=== PATIENT | male | born 1935 | race African-American/Black ===

== ENCOUNTER 2018-06-21 18:48 | Inpatient (IN) ==
[2018-06-21 20:10] LABS: Basophils # 0.1 10*3/uL (0.0-0.2); Basophils % 0.4 % (0.0-0.8); Eosinophils % 0.1 % (0.00-10.9); Hemoglobin 8.6 GM/DL (14.0-18.0); Immature Granulocytes % 0.5 %; Immature Granulocytes Absolute 0.07 #; Lymphocytes # 1.7 10*3/uL (1.4-4.0); Lymphocytes % 11.4 % (21.2-54.2); Mean Corpuscular HGB Conc 28.7 GM/DL (32-36); Mean Corpuscular Hemoglobin 19 PG (27-34); Mean Corpuscular Volume 67.1 FL (87-102); Mean Platelet Volume 10.2 FL (9.6-12.0); Monocytes # 1.3 10*3/uL (0.11-0.8); Monocytes % 8.6 % (1.7-12.7); Neutrophils # 11.6 10*3/uL (1.4-7.4); Platelet Count 515 T/CUMM (130-400); Red Blood Count 4.47 MC/CUMM (3.8-5.5); Red Cell Distribution Width 20.5 % (9.3-17.3); White Blood Count 14.7 T/CUMM (4-12)
[2018-06-21 20:24] LABS: Albumin 2.1 G/DL (3.4-5.0); Bilirubin,Total 0.8 MG/DL (0.2-1.0); Calcium 8.8 MG/DL (8.5-10.1); Potassium 3.5 MMOL/L (3.5-5.1); Total Protein 8.4 G/DL (6.4-8.3)
[2018-06-21 20:41] LABS: Elliptocytes Few; Hypochromasia 1+; Polychromasia Few; Target Cells Few; Tear Drop Cells 1+
[2018-06-21 20:42] LABS: Microcytosis 1+; Platelet Estimate Increased
[2018-06-21 20:56] LABS: Apearance,Urine Slightly Hazy (Clear); Bilirubin,Urine Negative (Negative); Blood, Urine Small mg/dL (Negative); Glucose,Urine (UA) Negative (Negative); Hyaline Casts,Urine 1 /LPF (0-3); Ketones,Urine Negative (Negative); Mucus,Urine Occasional /LPF (Occasional); Nitrite,Urine Negative (Negative); Protein,Urine 30 MG/DL; RBC,Urine 3 /HPF (0-4); Squamous Epithelial Cell,Urine Occasional /HPF (0-10); Urine Color Yellow (Yellow); Urine Specific Gravity 1.014 (1.001-1.035); WBC,Urine 13 /HPF (0-6)
[2018-06-21] MEDS ORDERED: PIPERACILLIN/TAZOBACTAM 3,375 MG in SODIUM CHLORIDE 0.9% 100 ML IV ONE (21:54)
[2018-06-21] MEDS ORDERED: PROMETHAZINE 25 MG/1 ML VIAL IM PRN (23:35)
[2018-06-21] MEDS ORDERED: diphenhydrAMINE CAP 25 MG CAPSULE PO PRN (23:35)
[2018-06-21] MEDS ORDERED: MORPHINE 4 MG/1 ML VIAL IV PRN (23:35)
[2018-06-21] MEDS ORDERED: ONDANSETRON 4 MG/2 ML VIAL IV PRN (23:35)
[2018-06-21] MEDS ORDERED: ACETAMINOPHEN 325 MG TABLET PO PRN (23:35)
[2018-06-21] MEDS ORDERED: SODIUM CHLORIDE 0.9% 1,000 ML IV SCH (23:45)
[2018-06-22] MEDS: SODIUM CHLORIDE 0.9% 1,000 ML IV SCH ×2 (01:30→15:13)
[2018-06-22] MEDS: CLINDAMYCIN INJ 300 MG in PREMIX 1 EACH IV SCH ×2 (02:30→09:11)
[2018-06-22 05:59] LABS: Basophils # 0.1 10*3/uL (0.0-0.2); Basophils % 0.6 % (0.0-0.8); Eosinophils # 0.1 10*3/uL (0.0-0.87); Eosinophils % 0.6 % (0.00-10.9); Hematocrit 26.4 VOL% (42.0-52.0); Immature Granulocytes % 0.5 %; Immature Granulocytes Absolute 0.06 #; Lymphocytes # 1.7 10*3/uL (1.4-4.0); Lymphocytes % 13.8 % (21.2-54.2); Mean Corpuscular HGB Conc 28.4 GM/DL (32-36); Mean Corpuscular Hemoglobin 19 PG (27-34); Mean Corpuscular Volume 66.7 FL (87-102); Mean Platelet Volume 10.6 FL (9.6-12.0); Monocytes # 1.2 10*3/uL (0.11-0.8); Monocytes % 9.6 % (1.7-12.7); NRBC # 0.02 10*3/uL; Neutrophils % 74.9 % (38.7-73.9); Platelet Count 464 T/CUMM (130-400); Red Blood Count 3.96 MC/CUMM (3.8-5.5); Red Cell Distribution Width 19.9 % (9.3-17.3)
[2018-06-22 06:00] LABS: Hemoglobin 7.5 GM/DL (14.0-18.0)
[2018-06-22] MEDS: PIPERACILLIN/TAZOBACTAM 3,375 MG in SODIUM CHLORIDE 0.9% 100 ML IV SCH ×3 (06:07→21:32)
[2018-06-22 06:14] LABS: Albumin 1.8 G/DL (3.4-5.0); Bilirubin,Total 1.1 MG/DL (0.2-1.0); Calcium 8.4 MG/DL (8.5-10.1); Osmolality,Calculated 286.4 MOS/KG (273-304); Potassium 3.4 MMOL/L (3.5-5.1); Total Protein 7.2 G/DL (6.4-8.3)
[2018-06-22 06:16] LABS: Hypochromasia 1+; Microcytosis 1+; Platelet Estimate Adequate
[2018-06-22] MEDS ORDERED: POTASSIUM CHLORIDE 20 MEQ TABLET PO ONE (13:55)
[2018-06-22] MEDS: CELECOXIB 100 MG CAPSULE PO SCH ×2 (15:07→21:28)
[2018-06-22] MEDS: DILTIAZEM CD 180 MG CAPSULE PO SCH (15:07)
[2018-06-22] MEDS: amLODIPine 10 MG TABLET PO SCH (15:08)
[2018-06-22] MEDS: METOPROLOL TARTRATE 25 MG TABLET PO SCH ×2 (15:08→21:28)
[2018-06-23] MEDS: PIPERACILLIN/TAZOBACTAM 3,375 MG in SODIUM CHLORIDE 0.9% 100 ML IV SCH (06:20)
[2018-06-23 06:35] LABS: Basophils # 0.1 10*3/uL (0.0-0.2); Basophils % 0.7 % (0.0-0.8); Eosinophils # 0.1 10*3/uL (0.0-0.87); Eosinophils % 1.4 % (0.00-10.9); Immature Granulocytes % 0.3 %; Immature Granulocytes Absolute 0.02 #; Lymphocytes # 1.5 10*3/uL (1.4-4.0); Lymphocytes % 20.4 % (21.2-54.2); Mean Corpuscular HGB Conc 27.8 GM/DL (32-36); Mean Corpuscular Hemoglobin 19 PG (27-34); Mean Corpuscular Volume 67.2 FL (87-102); Mean Platelet Volume 10.2 FL (9.6-12.0); Monocytes # 0.7 10*3/uL (0.11-0.8); Monocytes % 9.8 % (1.7-12.7); Neutrophils # 4.8 10*3/uL (1.4-7.4); Neutrophils % 67.4 % (38.7-73.9); Platelet Count 441 T/CUMM (130-400); Red Blood Count 4.06 MC/CUMM (3.8-5.5); Red Cell Distribution Width 20.7 % (9.3-17.3); White Blood Count 7.1 T/CUMM (4-12)
[2018-06-23 06:48] LABS: Hematocrit 27.1 VOL% (42.0-52.0); Hemoglobin 7.7 GM/DL (14.0-18.0)
[2018-06-23 07:01] LABS: Calcium 7.8 MG/DL (8.5-10.1); Hypochromasia 1+; Osmolality,Calculated 287.1 MOS/KG (273-304); Ovalocytes Slight; Platelet Estimate Adequate; Potassium 3.7 MMOL/L (3.5-5.1)
[2018-06-23 07:02] LABS: Microcytosis 1+
[2018-06-23 07:05] LABS: Risk Ratio 6.31; VLDL CHOLESTEROL 25.8 MG/DL
[2018-06-23] MEDS: METOPROLOL TARTRATE 25 MG TABLET PO SCH ×2 (09:33→15:50)
[2018-06-23] MEDS: DILTIAZEM CD 180 MG CAPSULE PO SCH (09:33)
[2018-06-23] MEDS: AMOXICILLIN/CLAV 875 MG TABLET PO SCH ×2 (09:33→20:31)
[2018-06-23] MEDS: amLODIPine 10 MG TABLET PO SCH (09:33)
[2018-06-23] MEDS: CELECOXIB 100 MG CAPSULE PO SCH ×2 (09:34→20:31)
[2018-06-23] MEDS ORDERED: GLUCAGON 1 MG VIAL IM PRN (09:46)
[2018-06-23] MEDS ORDERED: DEXTROSE 50% 25 GM/50 ML VIAL IV PRN (09:46)
[2018-06-23] MEDS: INSULIN REGULAR 100 UNIT/ML SUBCUT SCH ×2 (12:13→16:19)
[2018-06-23] MEDS: LACTOBACILLUS ACIDOPHILUS/BULGARICUS CHEW TABLET PO SCH ×2 (14:00→20:31)
[2018-06-23] MEDS: SODIUM CHLORIDE 0.9% 1,000 ML IV SCH (16:22)
[2018-06-24] MEDS: METOPROLOL TARTRATE 25 MG TABLET PO SCH ×2 (00:21→08:53)
[2018-06-24] MEDS: INSULIN REGULAR 100 UNIT/ML SUBCUT SCH ×3 (01:12→11:50)
[2018-06-24 05:44] LABS: Calcium 7.9 MG/DL (8.5-10.1); Potassium 3.5 MMOL/L (3.5-5.1)
[2018-06-24 05:55] LABS: Basophils # 0.1 10*3/uL (0.0-0.2); Basophils % 0.9 % (0.0-0.8); Eosinophils # 0.1 10*3/uL (0.0-0.87); Eosinophils % 2.3 % (0.00-10.9); Hematocrit 30.5 VOL% (42.0-52.0); Immature Granulocytes % 0.4 %; Immature Granulocytes Absolute 0.02 #; Lymphocytes # 1.6 10*3/uL (1.4-4.0); Lymphocytes % 28.2 % (21.2-54.2); Mean Corpuscular HGB Conc 28.2 GM/DL (32-36); Mean Corpuscular Hemoglobin 19 PG (27-34); Mean Corpuscular Volume 67.8 FL (87-102); Mean Platelet Volume 10.4 FL (9.6-12.0); Monocytes # 0.7 10*3/uL (0.11-0.8); Monocytes % 11.4 % (1.7-12.7); Neutrophils # 3.3 10*3/uL (1.4-7.4); Neutrophils % 56.8 % (38.7-73.9); Platelet Count 462 T/CUMM (130-400); White Blood Count 5.7 T/CUMM (4-12)
[2018-06-24 05:57] LABS: Hemoglobin 8.6 GM/DL (14.0-18.0)
[2018-06-24 06:08] LABS: Hypochromasia 1+; Platelet Estimate Adequate
[2018-06-24 06:09] LABS: Microcytosis Slight; Ovalocytes Slight
[2018-06-24] MEDS: SODIUM CHLORIDE 0.9% 1,000 ML IV SCH ×2 (08:23→08:24)
[2018-06-24] MEDS: AMOXICILLIN/CLAV 875 MG TABLET PO SCH (08:53)
[2018-06-24] MEDS: DILTIAZEM CD 180 MG CAPSULE PO SCH (08:53)
[2018-06-24] MEDS: CELECOXIB 100 MG CAPSULE PO SCH (08:54)
[2018-06-24] MEDS: amLODIPine 10 MG TABLET PO SCH (08:54)
[2018-06-24] MEDS: LACTOBACILLUS ACIDOPHILUS/BULGARICUS CHEW TABLET PO SCH (10:20)
[2018-06-24 13:23] VITALS: BP 109/62
== END 2018-06-24 12:35 | disposition home or self-care (01) | DRG 372 ==
LOC: N.ED 18:48 → N.EDINP 23:35 → N.5E 06-22 00:55
PROVIDERS: ADMIT Internal Medicine; ATTEND Internal Medicine

== ENCOUNTER 2018-08-05 05:55 | Inpatient (IN) ==
[2018-08-02 14:09] LABS: Calcium 8.6 MG/DL (8.5-10.1)
[2018-08-02 14:10] LABS: Potassium 4.2 MMOL/L (3.5-5.1)
[2018-08-02 14:16] LABS: Basophils # 0.1 10*3/uL (0.0-0.2); Basophils % 1.3 % (0.0-0.8); Eosinophils # 0.1 10*3/uL (0.0-0.87); Eosinophils % 2.3 % (0.00-10.9); Hematocrit 37.4 VOL% (42.0-52.0); Hemoglobin 10.7 GM/DL (14.0-18.0); Immature Granulocytes % 0.3 %; Immature Granulocytes Absolute 0.02 #; Lymphocytes # 2.1 10*3/uL (1.4-4.0); Lymphocytes % 34.6 % (21.2-54.2); Mean Corpuscular HGB Conc 28.6 GM/DL (32-36); Mean Corpuscular Hemoglobin 22 PG (27-34); Mean Corpuscular Volume 75.3 FL (87-102); Mean Platelet Volume 10.3 FL (9.6-12.0); Monocytes # 0.4 10*3/uL (0.11-0.8); Monocytes % 6.5 % (1.7-12.7); Neutrophils # 3.4 10*3/uL (1.4-7.4); Platelet Count 302 T/CUMM (130-400); Red Blood Count 4.97 MC/CUMM (3.8-5.5); White Blood Count 6.2 T/CUMM (4-12)
[2018-08-05] MEDS ORDERED: ERTAPENEM 1,000 MG in SODIUM CHLORIDE 0.9% 100 ML IV ONE (06:00)
[2018-08-05] MEDS ORDERED: ALVIMOPAN 12 MG CAPSULE PO ONE (06:00)
[2018-08-05] MEDS ORDERED: ERTAPENEM 1,000 MG VIAL ONE (06:55)
[2018-08-05] MEDS ORDERED: ALVIMOPAN 12 MG CAPSULE ONE (06:55)
[2018-08-05] MEDS ORDERED: LACTATED RINGERS 1,000 ML IV SCH (07:00)
[2018-08-05] MEDS ORDERED: INDOCYANINE GREEN 25 MG VIAL IV ONE (08:33)
[2018-08-05] MEDS ORDERED: TISSUE ADHESIVE 1 EACH APPLICATOR TOP ONE (09:32)
[2018-08-05] MEDS ORDERED: DESFLURANE 1 UNIT/15 MINUTE INH ONE (10:16)
[2018-08-05] MEDS ORDERED: PROPOFOL 200 MG/20 ML VIAL IV ONE (10:16)
[2018-08-05] MEDS ORDERED: ePHEDrine 50 MG/ML AMP ONE (10:19)
[2018-08-05] MEDS ORDERED: GLYCOPYRROLATE 0.4 MG/2 ML VIAL ONE (10:19)
[2018-08-05] MEDS ORDERED: ETOMIDATE 40 MG/20 ML VIAL IV ONE (10:19)
[2018-08-05] MEDS ORDERED: ACETAMINOPHEN 1,000 MG/100 ML VIAL IV ONE (10:19)
[2018-08-05] MEDS ORDERED: ONDANSETRON 4 MG/2 ML VIAL ONE (10:19)
[2018-08-05] MEDS ORDERED: ROCURONIUM 100 MG/10 ML VIAL IV ONE (10:19)
[2018-08-05] MEDS ORDERED: methylPREDNISolone SOD SUC 125 MG/2 ML VIAL ONE (10:19)
[2018-08-05] MEDS ORDERED: LACTATED RINGERS 1,000 ML IV ONE (10:20)
[2018-08-05] MEDS ORDERED: NEOSTIGMINE 10 MG/10 ML VIAL ONE (10:20)
[2018-08-05] MEDS ORDERED: HYDROmorphone 2 MG/1 ML VIAL IV PRN (11:12)
[2018-08-05] MEDS ORDERED: DEXTROSE 50% 25 GM/50 ML SYRINGE IV PRN (11:12)
[2018-08-05] MEDS ORDERED: GLUCAGON 1 MG VIAL IM PRN (11:12)
[2018-08-05 11:55] LABS: Calcium 8.4 MG/DL (8.5-10.1); Osmolality,Calculated 284.4 MOS/KG (273-304); Potassium 3.7 MMOL/L (3.5-5.1)
[2018-08-05 12:11] LABS: Basophils # 0.1 10*3/uL (0.0-0.2); Basophils % 0.8 % (0.0-0.8); Eosinophils % 0.2 % (0.00-10.9); Hematocrit 36.9 VOL% (42.0-52.0); Immature Granulocytes % 0.3 %; Immature Granulocytes Absolute 0.03 #; Lymphocytes # 1.8 10*3/uL (1.4-4.0); Lymphocytes % 17.1 % (21.2-54.2); Mean Corpuscular HGB Conc 28.5 GM/DL (32-36); Mean Corpuscular Hemoglobin 22 PG (27-34); Mean Corpuscular Volume 75.6 FL (87-102); Mean Platelet Volume 10.4 FL (9.6-12.0); Monocytes # 0.3 10*3/uL (0.11-0.8); Monocytes % 3.2 % (1.7-12.7); NRBC # 0.02 10*3/uL; Neutrophils % 78.4 % (38.7-73.9); Platelet Count 266 T/CUMM (130-400); Red Blood Count 4.88 MC/CUMM (3.8-5.5); White Blood Count 10.2 T/CUMM (4-12)
[2018-08-05 12:15] LABS: Hemoglobin 10.5 GM/DL (14.0-18.0)
[2018-08-05] MEDS: INSULIN REGULAR 100 UNIT/ML SUBCUT SCH ×3 (12:18→21:59)
[2018-08-05 12:38] LABS: Hypochromasia 2+; Microcytosis 1+; Ovalocytes Few
[2018-08-05 12:39] LABS: Anisocytosis 1+; Platelet Estimate Normal
[2018-08-05] MEDS: LACTATED RINGERS 1,000 ML IV SCH ×2 (15:44→21:55)
[2018-08-05] MEDS: METOPROLOL TARTRATE 25 MG TABLET PO SCH ×2 (15:55→21:59)
[2018-08-05] MEDS ORDERED: ALVIMOPAN 12 MG CAPSULE PO SCH (21:00)
[2018-08-06] MEDS ORDERED: ENOXAPARIN 40 MG/0.4 ML SYRINGE SUBCUT SCH (04:18)
[2018-08-06 04:56] LABS: Basophils % 0.1 % (0.0-0.8); Hematocrit 35.4 VOL% (42.0-52.0); Immature Granulocytes % 0.6 %; Lymphocytes # 1.4 10*3/uL (1.4-4.0); Lymphocytes % 8.1 % (21.2-54.2); Mean Corpuscular HGB Conc 28.8 GM/DL (32-36); Mean Corpuscular Hemoglobin 21 PG (27-34); Mean Corpuscular Volume 74.4 FL (87-102); Mean Platelet Volume 9.9 FL (9.6-12.0); Monocytes % 6.1 % (1.7-12.7); Neutrophils # 14.4 10*3/uL (1.4-7.4); Neutrophils % 85.1 % (38.7-73.9); Platelet Count 271 T/CUMM (130-400); Red Blood Count 4.76 MC/CUMM (3.8-5.5); Red Cell Distribution Width 24.3 % (9.3-17.3); White Blood Count 16.9 T/CUMM (4-12)
[2018-08-06 05:03] LABS: Hemoglobin 10.2 GM/DL (14.0-18.0)
[2018-08-06] MEDS: LACTATED RINGERS 1,000 ML IV SCH (05:10)
[2018-08-06 05:20] LABS: Calcium 8.8 MG/DL (8.5-10.1); Osmolality,Calculated 282.5 MOS/KG (273-304); Potassium 4.6 MMOL/L (3.5-5.1)
[2018-08-06] MEDS ORDERED: predniSONE 5 MG TABLET PO SCH (09:00)
[2018-08-06] MEDS ORDERED: amLODIPine 10 MG TABLET PO SCH (09:00)
[2018-08-06] MEDS ORDERED: POTASSIUM CHLORIDE 20 MEQ TABLET PO SCH (09:00)
[2018-08-06] MEDS ORDERED: DILTIAZEM CD 180 MG CAPSULE PO SCH (09:00)
[2018-08-06] MEDS: INSULIN REGULAR 100 UNIT/ML SUBCUT SCH (10:18)
[2018-08-06] MEDS: METOPROLOL TARTRATE 25 MG TABLET PO SCH (10:31)
[2018-08-06 10:32] VITALS: BP 167/88
== END 2018-08-06 12:36 | disposition home or self-care (01) | DRG 329 ==
LOC: N.OR 05:55 → N.SDSINP 05:56 → N.3E 10:02
PROVIDERS: ADMIT Surgery; ATTEND Surgery

== ENCOUNTER 2018-08-10 17:15 | Inpatient (IN) ==
[2018-08-10] MEDS ORDERED: SODIUM CHLORIDE 0.9% 500 ML IV STA (17:46)
[2018-08-10] MEDS ORDERED: ONDANSETRON 4 MG/2 ML VIAL IV STA (17:46)
[2018-08-10 18:33] LABS: Apearance,Urine Slightly Hazy (Clear); Bacteria,Urine Occasional /HPF (Few); Bilirubin,Urine Negative (Negative); Blood, Urine Large mg/dL (Negative); Glucose,Urine (UA) Negative (Negative); Hyaline Casts,Urine 1 /LPF (0-3); Ketones,Urine Negative (Negative); Nitrite,Urine Negative (Negative); Protein,Urine Negative; RBC,Urine 67 /HPF (0-4); Squamous Epithelial Cell,Urine Occasional /HPF (0-10); Urine Color Yellow (Yellow); Urine Specific Gravity 1.009 (1.001-1.035); Urine Urobilinogen < 2.0 EU/DL (0.2-1.0); WBC,Urine 9 /HPF (0-6)
[2018-08-10 18:52] LABS: Mean Platelet Volume 10.4 FL (9.6-12.0)
[2018-08-10] MEDS ORDERED: cefTRIAXone 1,000 MG in SODIUM CHLORIDE 0.9% 100 ML IV STA (19:05)
[2018-08-10 19:14] LABS: Basophils % 0.4 % (0.0-0.8); Eosinophils # 0.2 10*3/uL (0.0-0.87); Eosinophils % 2.1 % (0.00-10.9); Hematocrit 33.6 VOL% (42.0-52.0); Immature Granulocytes % 0.7 %; Immature Granulocytes Absolute 0.06 #; Mean Corpuscular HGB Conc 29.8 GM/DL (32-36); Mean Corpuscular Hemoglobin 22 PG (27-34); Mean Corpuscular Volume 72.4 FL (87-102); Monocytes % 12.1 % (1.7-12.7); NRBC # 0.03 10*3/uL; Neutrophils # 5.1 10*3/uL (1.4-7.4); Neutrophils % 60.7 % (38.7-73.9); Platelet Count 254 T/CUMM (130-400); Red Blood Count 4.64 MC/CUMM (3.8-5.5); Red Cell Distribution Width 23.5 % (9.3-17.3); White Blood Count 8.4 T/CUMM (4-12)
[2018-08-10 19:21] LABS: Lactic Acid 0.8 MMOL/L (0.4-2.0)
[2018-08-10 19:22] LABS: Albumin 2.7 G/DL (3.4-5.0); Bilirubin,Total 0.7 MG/DL (0.2-1.0); Calcium 8.7 MG/DL (8.5-10.1); Osmolality,Calculated 303.7 MOS/KG (273-304); Potassium 4.2 MMOL/L (3.5-5.1); Total Protein 7.6 G/DL (6.4-8.3)
[2018-08-10] MEDS ORDERED: NIFEdipine 10 MG CAPSULE PO PRN (21:29)
[2018-08-10] MEDS ORDERED: ACETAMINOPHEN 325 MG TABLET PO PRN (21:29)
[2018-08-10] MEDS ORDERED: ONDANSETRON 4 MG/2 ML VIAL IV PRN (21:29)
[2018-08-10] MEDS: TAMSULOSIN 0.4 MG CAPSULE PO SCH (23:54)
[2018-08-10] MEDS: METOPROLOL TARTRATE 25 MG TABLET PO SCH (23:54)
[2018-08-10] MEDS: CIPROFLOXACIN 500 MG TABLET PO SCH (23:54)
[2018-08-10] MEDS: ENOXAPARIN 30 MG/0.3 ML SYRINGE SUBCUT SCH (23:54)
[2018-08-11] MEDS: SODIUM CHLORIDE 0.9% 1,000 ML IV SCH ×2 (00:04→16:39)
[2018-08-11 04:59] LABS: Calcium 8.7 MG/DL (8.5-10.1); Osmolality,Calculated 301.1 MOS/KG (273-304); Potassium 4.5 MMOL/L (3.5-5.1)
[2018-08-11 05:22] LABS: Basophils % 0.6 % (0.0-0.8); Eosinophils # 0.2 10*3/uL (0.0-0.87); Eosinophils % 2.1 % (0.00-10.9); Hematocrit 31.7 VOL% (42.0-52.0); Immature Granulocytes % 0.8 %; Immature Granulocytes Absolute 0.06 #; Lymphocytes # 1.7 10*3/uL (1.4-4.0); Mean Corpuscular HGB Conc 29.3 GM/DL (32-36); Mean Corpuscular Hemoglobin 21 PG (27-34); Mean Platelet Volume 10.1 FL (9.6-12.0); Monocytes # 0.9 10*3/uL (0.11-0.8); Monocytes % 12.4 % (1.7-12.7); NRBC # 0.02 10*3/uL; Neutrophils # 4.4 10*3/uL (1.4-7.4); Neutrophils % 60.1 % (38.7-73.9); Platelet Count 243 T/CUMM (130-400); Red Blood Count 4.34 MC/CUMM (3.8-5.5); Red Cell Distribution Width 23.5 % (9.3-17.3); White Blood Count 7.2 T/CUMM (4-12)
[2018-08-11 05:23] LABS: Hemoglobin 9.3 GM/DL (14.0-18.0)
[2018-08-11] MEDS ORDERED: PNEUMOCOCCAL VACCINE (13 VALENT) 0.5 ML SYRINGE IM ONE (09:00)
[2018-08-11] MEDS: TAMSULOSIN 0.4 MG CAPSULE PO SCH (10:11)
[2018-08-11] MEDS: DILTIAZEM CD 180 MG CAPSULE PO SCH (10:11)
[2018-08-11] MEDS: amLODIPine 10 MG TABLET PO SCH (10:12)
[2018-08-11] MEDS: METOPROLOL TARTRATE 25 MG TABLET PO SCH ×3 (10:12→21:31)
[2018-08-11] MEDS: predniSONE 5 MG TABLET PO SCH (10:12)
[2018-08-11] MEDS: PANTOPRAZOLE 40 MG TABLET PO SCH (10:13)
[2018-08-11] MEDS ORDERED: BISACODYL 10 MG SUPP RECTAL ONE (11:53)
[2018-08-11] MEDS ORDERED: DEXTROSE 50% 25 GM/50 ML SYRINGE IV PRN (11:57)
[2018-08-11] MEDS ORDERED: GLUCAGON 1 MG VIAL IM PRN (11:57)
[2018-08-11] MEDS: CIPROFLOXACIN 500 MG TABLET PO SCH (15:24)
[2018-08-11] MEDS: INSULIN REGULAR 100 UNIT/ML SUBCUT SCH (16:28)
[2018-08-11] MEDS: ENOXAPARIN 30 MG/0.3 ML SYRINGE SUBCUT SCH (21:31)
[2018-08-12 06:00] LABS: Calcium 8.5 MG/DL (8.5-10.1); Osmolality,Calculated 291.8 MOS/KG (273-304); Potassium 4.8 MMOL/L (3.5-5.1)
[2018-08-12 06:05] LABS: Risk Ratio 3.93; VLDL CHOLESTEROL 23.8 MG/DL
[2018-08-12 06:17] LABS: Basophils % 0.4 % (0.0-0.8); Eosinophils # 0.2 10*3/uL (0.0-0.87); Eosinophils % 2.2 % (0.00-10.9); Hematocrit 30.1 VOL% (42.0-52.0); Hemoglobin 8.6 GM/DL (14.0-18.0); Immature Granulocytes % 0.8 %; Immature Granulocytes Absolute 0.06 #; Lymphocytes # 2.4 10*3/uL (1.4-4.0); Lymphocytes % 32.8 % (21.2-54.2); Mean Corpuscular HGB Conc 28.6 GM/DL (32-36); Mean Corpuscular Hemoglobin 21 PG (27-34); Mean Corpuscular Volume 74.5 FL (87-102); Mean Platelet Volume 10.2 FL (9.6-12.0); Monocytes # 0.9 10*3/uL (0.11-0.8); Monocytes % 12.2 % (1.7-12.7); NRBC # 0.02 10*3/uL; Neutrophils # 3.7 10*3/uL (1.4-7.4); Neutrophils % 51.6 % (38.7-73.9); Platelet Count 257 T/CUMM (130-400); Red Blood Count 4.04 MC/CUMM (3.8-5.5); Red Cell Distribution Width 23.6 % (9.3-17.3); White Blood Count 7.2 T/CUMM (4-12)
[2018-08-12 06:20] LABS: Hypochromasia 1+; Ovalocytes Slight; Platelet Estimate Adequate
[2018-08-12] MEDS: METOPROLOL TARTRATE 25 MG TABLET PO SCH ×3 (10:25→21:44)
[2018-08-12] MEDS: DILTIAZEM CD 180 MG CAPSULE PO SCH (10:25)
[2018-08-12] MEDS: predniSONE 5 MG TABLET PO SCH (10:26)
[2018-08-12] MEDS: PANTOPRAZOLE 40 MG TABLET PO SCH (10:26)
[2018-08-12] MEDS: FINASTERIDE 5 MG TABLET PO SCH (10:26)
[2018-08-12] MEDS: TAMSULOSIN 0.4 MG CAPSULE PO SCH (10:26)
[2018-08-12] MEDS: CIPROFLOXACIN 500 MG TABLET PO SCH (10:26)
[2018-08-12] MEDS: amLODIPine 10 MG TABLET PO SCH (10:26)
[2018-08-12] MEDS: INSULIN REGULAR 100 UNIT/ML SUBCUT SCH ×2 (10:27→19:09)
[2018-08-12] MEDS: SODIUM CHLORIDE 0.9% 1,000 ML IV SCH (10:31)
[2018-08-12] MEDS: ENOXAPARIN 40 MG/0.4 ML SYRINGE SUBCUT SCH (21:44)
[2018-08-13] MEDS: SODIUM CHLORIDE 0.9% 1,000 ML IV SCH ×2 (04:35→21:09)
[2018-08-13] MEDS: CIPROFLOXACIN 500 MG TABLET PO SCH ×2 (04:51→21:08)
[2018-08-13 05:13] LABS: Calcium 8.5 MG/DL (8.5-10.1); Osmolality,Calculated 284.1 MOS/KG (273-304); Potassium 4.3 MMOL/L (3.5-5.1)
[2018-08-13 07:26] LABS: Basophils # 0.1 10*3/uL (0.0-0.2); Basophils % 0.7 % (0.0-0.8); Eosinophils # 0.2 10*3/uL (0.0-0.87); Eosinophils % 2.2 % (0.00-10.9); Hematocrit 30.6 VOL% (42.0-52.0); Immature Granulocytes % 1.2 %; Immature Granulocytes Absolute 0.08 #; Lymphocytes # 2.8 10*3/uL (1.4-4.0); Mean Corpuscular HGB Conc 28.4 GM/DL (32-36); Mean Corpuscular Hemoglobin 22 PG (27-34); Mean Corpuscular Volume 76.3 FL (87-102); Mean Platelet Volume 10.4 FL (9.6-12.0); Monocytes # 0.7 10*3/uL (0.11-0.8); Monocytes % 9.5 % (1.7-12.7); NRBC # 0.03 10*3/uL; Neutrophils # 3.2 10*3/uL (1.4-7.4); Neutrophils % 46.4 % (38.7-73.9); Platelet Count 270 T/CUMM (130-400); Red Blood Count 4.01 MC/CUMM (3.8-5.5); Red Cell Distribution Width 23.7 % (9.3-17.3); White Blood Count 6.9 T/CUMM (4-12)
[2018-08-13 07:36] LABS: Hemoglobin 8.7 GM/DL (14.0-18.0)
[2018-08-13 07:46] LABS: Hypochromasia 1+
[2018-08-13 07:47] LABS: Ovalocytes Slight; Platelet Estimate Adequate
[2018-08-13] MEDS: PANTOPRAZOLE 40 MG TABLET PO SCH (08:23)
[2018-08-13] MEDS: TAMSULOSIN 0.4 MG CAPSULE PO SCH (08:23)
[2018-08-13] MEDS: predniSONE 5 MG TABLET PO SCH (08:23)
[2018-08-13] MEDS: FINASTERIDE 5 MG TABLET PO SCH (08:23)
[2018-08-13] MEDS: DILTIAZEM CD 180 MG CAPSULE PO SCH (08:24)
[2018-08-13] MEDS: amLODIPine 10 MG TABLET PO SCH (08:24)
[2018-08-13] MEDS: METOPROLOL TARTRATE 25 MG TABLET PO SCH ×3 (08:27→21:08)
[2018-08-13] MEDS: INSULIN REGULAR 100 UNIT/ML SUBCUT SCH ×2 (09:49→16:05)
[2018-08-13] MEDS: ENOXAPARIN 40 MG/0.4 ML SYRINGE SUBCUT SCH (21:08)
[2018-08-14 06:20] LABS: Calcium 8.7 MG/DL (8.5-10.1); Osmolality,Calculated 284.1 MOS/KG (273-304); Potassium 4.1 MMOL/L (3.5-5.1)
[2018-08-14] MEDS: INSULIN REGULAR 100 UNIT/ML SUBCUT SCH (08:22)
[2018-08-14] MEDS: predniSONE 5 MG TABLET PO SCH (08:34)
[2018-08-14] MEDS: DILTIAZEM CD 180 MG CAPSULE PO SCH (08:34)
[2018-08-14] MEDS: TAMSULOSIN 0.4 MG CAPSULE PO SCH (08:34)
[2018-08-14] MEDS: FINASTERIDE 5 MG TABLET PO SCH (08:34)
[2018-08-14] MEDS: PANTOPRAZOLE 40 MG TABLET PO SCH (08:34)
[2018-08-14] MEDS: METOPROLOL TARTRATE 25 MG TABLET PO SCH (08:34)
[2018-08-14] MEDS: amLODIPine 10 MG TABLET PO SCH (08:34)
[2018-08-14 12:48] VITALS: BP 132/70
== END 2018-08-14 14:30 | disposition home or self-care (01) | DRG 699 ==
LOC: N.ED 17:15 → N.EDINP 19:23 → N.3E 20:20
PROVIDERS: ADMIT Internal Medicine; ATTEND Internal Medicine

== ENCOUNTER 2020-10-25 11:59 | Inpatient (IN) ==
[2020-10-25 12:18] LABS: ABG Base Excess -0.1 MMOL/L (-2.5-2.5); ABG HCO3 26.7 MMOL/L (20-26); ABG Oxygen Saturation 99.5 % (95-100); ABG PCO2 51.1 MM HG (35-48); ABG PH 7.336 (7.35-7.45); ABG PO2 389.6 MM HG (80-95); ABG TCO2 28.3 MMOL/L (23-27)
[2020-10-25] MEDS ORDERED: niCARdipine 25 MG/10 ML VIAL IV ONE (12:40)
[2020-10-25] MEDS: niCARdipine INJ 25 MG in SODIUM CHLORIDE 0.9% 240 ML IV SCH (12:44)
[2020-10-25 12:56] LABS: Basophils # 0.1 10*3/uL (0.0-0.2); Basophils % 0.8 % (0.0-0.8); Eosinophils # 0.1 10*3/uL (0.0-0.87); Eosinophils % 1.5 % (0.00-10.9); Hematocrit 48.9 VOL% (42.0-52.0); Hemoglobin 15.4 GM/DL (14.0-18.0); Immature Granulocytes % 0.3 %; Immature Granulocytes Absolute 0.02 #; Lymphocytes # 2.6 10*3/uL (1.4-4.0); Lymphocytes % 36.6 % (21.2-54.2); Mean Corpuscular HGB Conc 31.5 GM/DL (32-36); Mean Corpuscular Volume 93.5 FL (87-102); Mean Platelet Volume 11.1 FL (9.6-12.0); Monocytes % 8.8 % (1.7-12.7); Platelet Count 149 T/CUMM (130-400); Red Blood Count 5.23 MC/CUMM (3.8-5.5); Red Cell Distribution Width 13.2 % (9.3-17.3); White Blood Count 7.2 T/CUMM (4-12)
[2020-10-25 13:10] LABS: INR 1.1; PT Patient Result 11.3 SECS (9.8-11.9)
[2020-10-25 13:25] LABS: Bilirubin,Urine Negative (Negative); Blood, Urine Moderate mg/dL (Negative); Glucose,Urine (UA) >=500 mg/dL (Negative); Ketones,Urine Negative (Negative); Mucus,Urine Few /LPF (Occasional); Nitrite,Urine Negative (Negative); Protein,Urine 100 MG/DL; RBC,Urine 79 /HPF (0-4); Squamous Epithelial Cell,Urine Occasional /HPF (0-10); Urine Appearance CLOUDY (Clear); Urine Color Yellow (Yellow); Urine Urobilinogen < 2.0 EU/DL (0.2-1.0); WBC,Urine 1398 /HPF (0-6)
[2020-10-25 13:32] LABS: Alanine Aminotransferase 20 U/L (16-61); Albumin 3.1 G/DL (3.4-5.0); Alkaline Phosphatase 103 U/L (45-117); Aspartate Amino Transferase 28 U/L (0-37); Blood Urea Nitrogen 13 MG/DL (7-18); Carbon Dioxide 26 MMOL/L (21-32); Estimated Glom Filtration Rate 55 ML/MIN; Glucose 273 MG/DL (74-106); Osmolality,Calculated 279.1 MOS/KG (273-304); Potassium 5.7 MMOL/L (3.5-5.1); Sodium 135 MMOL/L (136-145); Total Protein 7.3 G/DL (6.4-8.3)
[2020-10-25 13:33] LABS: Acetaminophen < 2.0 UG/ML (10-30); Salicylate < 2.8 MG/DL (2.8-20)
[2020-10-25] MEDS ORDERED: LACTATED RINGERS 1,000 ML IV ONE (13:55)
[2020-10-25] MEDS ORDERED: cefTRIAXone 1,000 MG in SODIUM CHLORIDE 0.9% 100 ML IV STA (13:55)
[2020-10-25] MEDS ORDERED: ALBUTEROL 2.5 MG/3 ML NEB RESP TX PRN (14:23)
[2020-10-25 14:39] LABS: ABG Base Excess -0.4 MMOL/L (-2.5-2.5); ABG HCO3 25.9 MMOL/L (20-26); ABG Oxygen Saturation 98.6 % (95-100); ABG PCO2 48.4 MM HG (35-48); ABG PH 7.347 (7.35-7.45); ABG PO2 146.4 MM HG (80-95); ABG TCO2 27.4 MMOL/L (23-27)
[2020-10-25] MEDS: amLODIPine 10 MG TABLET PO SCH (16:23)
[2020-10-25] MEDS: methylPREDNISolone SOD SUC 40 MG/1 ML VIAL IV SCH (16:23)
[2020-10-25] MEDS ORDERED: cloNIDine 0.3 MG/24 HR PATCH TRANSDERM SCH (17:00)
[2020-10-25] MEDS: ENOXAPARIN 40 MG/0.4 ML SYRINGE SUBCUT SCH (17:22)
[2020-10-25] MEDS: FAMOTIDINE 20 MG/2 ML VIAL IV SCH (17:23)
[2020-10-26 04:21] LABS: ABG Base Excess 0.4 MMOL/L (-2.5-2.5); ABG HCO3 24.2 MMOL/L (20-26); ABG Oxygen Saturation 99.1 % (95-100); ABG PCO2 36.8 MM HG (35-48); ABG PH 7.436 (7.35-7.45); ABG PO2 186.8 MM HG (80-95); ABG TCO2 25.3 MMOL/L (23-27); Allen Test Positive; Pt O2 Delivery Device Ventilator
[2020-10-26 04:38] LABS: Basophils % 0.3 % (0.0-0.8); Eosinophils % 0.2 % (0.00-10.9); Hematocrit 45.9 VOL% (42.0-52.0); Hemoglobin 15.7 GM/DL (14.0-18.0); Immature Granulocytes % 0.3 %; Immature Granulocytes Absolute 0.02 #; Lymphocytes % 16.7 % (21.2-54.2); Mean Corpuscular HGB Conc 34.2 GM/DL (32-36); Mean Corpuscular Volume 88.6 FL (87-102); Mean Platelet Volume 11.2 FL (9.6-12.0); Monocytes % 3.3 % (1.7-12.7); Neutrophils % 79.2 % (38.7-73.9); Platelet Count 149 T/CUMM (130-400); Red Blood Count 5.18 MC/CUMM (3.8-5.5); Red Cell Distribution Width 13.1 % (9.3-17.3); White Blood Count 6.1 T/CUMM (4-12)
[2020-10-26 05:06] LABS: Albumin 2.6 G/DL (3.4-5.0); Bilirubin,Total 1.1 MG/DL (0.2-1.0); Calcium 8.6 MG/DL (8.5-10.1); Potassium 4.7 MMOL/L (3.5-5.1); Total Protein 7.1 G/DL (6.4-8.3)
[2020-10-26] MEDS: FAMOTIDINE 20 MG/2 ML VIAL IV SCH ×2 (05:23→16:50)
[2020-10-26] MEDS: methylPREDNISolone SOD SUC 40 MG/1 ML VIAL IV SCH ×2 (05:25→15:50)
[2020-10-26] MEDS: amLODIPine 10 MG TABLET PO SCH (08:15)
[2020-10-26] MEDS: TAMSULOSIN 0.4 MG CAPSULE PO SCH (08:15)
[2020-10-26] MEDS: FINASTERIDE 5 MG TABLET PO SCH (08:15)
[2020-10-26] MEDS: allopurinoL 100 MG TABLET PO SCH ×2 (08:15→21:30)
[2020-10-26] MEDS: cefTRIAXone 1,000 MG in SYRINGE 1 EACH IV SCH (08:20)
[2020-10-26] MEDS ORDERED: DEXTROSE 50% 25 GM/50 ML VIAL IV PRN (08:58)
[2020-10-26] MEDS ORDERED: GLUCAGON 1 MG VIAL IM PRN ×2 (08:58→09:01)
[2020-10-26] MEDS: niCARdipine INJ 25 MG in SODIUM CHLORIDE 0.9% 240 ML IV SCH ×2 (09:10→18:30)
[2020-10-26] MEDS: INSULIN GLARGINE 100 UNIT/ML SUBCUT SCH (09:35)
[2020-10-26] MEDS: INSULIN LISPRO 100 UNIT/ML SUBCUT SCH ×2 (11:46→18:00)
[2020-10-26] MEDS: ENOXAPARIN 40 MG/0.4 ML SYRINGE SUBCUT SCH (16:50)
[2020-10-27] MEDS: INSULIN LISPRO 100 UNIT/ML SUBCUT SCH ×5 (01:10→23:55)
[2020-10-27 03:24] LABS: Basophils % 0.1 % (0.0-0.8); Hematocrit 45.4 VOL% (42.0-52.0); Hemoglobin 15.4 GM/DL (14.0-18.0); Immature Granulocytes % 0.5 %; Immature Granulocytes Absolute 0.05 #; Lymphocytes # 1.2 10*3/uL (1.4-4.0); Lymphocytes % 12.8 % (21.2-54.2); Mean Corpuscular HGB Conc 33.9 GM/DL (32-36); Mean Platelet Volume 11.1 FL (9.6-12.0); Monocytes % 3.8 % (1.7-12.7); Neutrophils % 82.8 % (38.7-73.9); Platelet Count 157 T/CUMM (130-400); Red Cell Distribution Width 13.1 % (9.3-17.3); White Blood Count 9.6 T/CUMM (4-12)
[2020-10-27 03:42] LABS: Calcium 8.6 MG/DL (8.5-10.1); Osmolality,Calculated 284.1 MOS/KG (273-304); Potassium 4.3 MMOL/L (3.5-5.1)
[2020-10-27 03:59] LABS: Total Cells Counted 0
[2020-10-27 04:01] LABS: ABG Base Excess 0.3 MMOL/L (-2.5-2.5); ABG HCO3 24.7 MMOL/L (20-26); ABG Oxygen Saturation 98.7 % (95-100); ABG PCO2 39.3 MM HG (35-48); ABG PH 7.408 (7.35-7.45); ABG TCO2 20.9 MMOL/L (23-27)
[2020-10-27] MEDS: methylPREDNISolone SOD SUC 40 MG/1 ML VIAL IV SCH ×2 (04:32→15:50)
[2020-10-27] MEDS: FAMOTIDINE 20 MG/2 ML VIAL IV SCH ×2 (05:39→17:40)
[2020-10-27] MEDS: niCARdipine INJ 25 MG in SODIUM CHLORIDE 0.9% 240 ML IV SCH ×3 (06:15→22:28)
[2020-10-27] MEDS: FINASTERIDE 5 MG TABLET PO SCH (08:35)
[2020-10-27] MEDS: allopurinoL 100 MG TABLET PO SCH ×2 (08:35→21:37)
[2020-10-27] MEDS: INSULIN GLARGINE 100 UNIT/ML SUBCUT SCH (08:35)
[2020-10-27] MEDS: TAMSULOSIN 0.4 MG CAPSULE PO SCH (08:35)
[2020-10-27] MEDS: amLODIPine 10 MG TABLET PO SCH (08:35)
[2020-10-27] MEDS: cefTRIAXone 1,000 MG in SYRINGE 1 EACH IV SCH (08:40)
[2020-10-27] MEDS: ENOXAPARIN 40 MG/0.4 ML SYRINGE SUBCUT SCH (17:40)
[2020-10-28 03:40] LABS: ABG Base Excess -1.5 MMOL/L (-2.5-2.5); ABG HCO3 22.5 MMOL/L (20-26); ABG Oxygen Saturation 97.8 % (95-100); ABG PCO2 35.9 MM HG (35-48); ABG PH 7.414 (7.35-7.45); ABG PO2 105.7 MM HG (80-95); ABG TCO2 23.6 MMOL/L (23-27)
[2020-10-28] MEDS: methylPREDNISolone SOD SUC 40 MG/1 ML VIAL IV SCH ×2 (03:53→16:51)
[2020-10-28] MEDS: FAMOTIDINE 20 MG/2 ML VIAL IV SCH ×2 (04:29→16:51)
[2020-10-28] MEDS: niCARdipine INJ 25 MG in SODIUM CHLORIDE 0.9% 240 ML IV SCH ×3 (04:45→14:24)
[2020-10-28 04:51] LABS: Basophils % 0.3 % (0.0-0.8); Hematocrit 44.9 VOL% (42.0-52.0); Hemoglobin 15.3 GM/DL (14.0-18.0); Immature Granulocytes % 0.9 %; Lymphocytes # 1.1 10*3/uL (1.4-4.0); Lymphocytes % 9.5 % (21.2-54.2); Mean Corpuscular HGB Conc 34.1 GM/DL (32-36); Mean Corpuscular Volume 89.8 FL (87-102); Mean Platelet Volume 11.2 FL (9.6-12.0); Monocytes % 4.3 % (1.7-12.7); Platelet Count 166 T/CUMM (130-400); Red Cell Distribution Width 13.3 % (9.3-17.3)
[2020-10-28 05:09] LABS: Calcium 8.6 MG/DL (8.5-10.1); Osmolality,Calculated 292.3 MOS/KG (273-304)
[2020-10-28] MEDS: INSULIN LISPRO 100 UNIT/ML SUBCUT SCH ×3 (06:40→18:42)
[2020-10-28] MEDS: amLODIPine 10 MG TABLET PO SCH (09:21)
[2020-10-28] MEDS: INSULIN GLARGINE 100 UNIT/ML SUBCUT SCH (09:21)
[2020-10-28] MEDS: TAMSULOSIN 0.4 MG CAPSULE PO SCH (09:21)
[2020-10-28] MEDS: allopurinoL 100 MG TABLET PO SCH ×2 (09:21→21:38)
[2020-10-28] MEDS: FINASTERIDE 5 MG TABLET PO SCH (09:21)
[2020-10-28] MEDS: cefTRIAXone 1,000 MG in SYRINGE 1 EACH IV SCH (09:22)
[2020-10-28] MEDS: ENOXAPARIN 40 MG/0.4 ML SYRINGE SUBCUT SCH (16:51)
[2020-10-29] MEDS: INSULIN LISPRO 100 UNIT/ML SUBCUT SCH ×5 (01:02→23:56)
[2020-10-29 02:53] LABS: Pt O2 Delivery Device Ventilator
[2020-10-29 02:54] LABS: ABG Base Excess 0.3 MMOL/L (-2.5-2.5); ABG HCO3 24.7 MMOL/L (20-26); ABG Oxygen Saturation 98.7 % (95-100); ABG PCO2 38.2 MM HG (35-48); ABG PH 7.417 (7.35-7.45); ABG TCO2 20.9 MMOL/L (23-27)
[2020-10-29] MEDS: methylPREDNISolone SOD SUC 40 MG/1 ML VIAL IV SCH (03:18)
[2020-10-29 03:54] LABS: Basophils % 0.2 % (0.0-0.8); Hematocrit 45.2 VOL% (42.0-52.0); Hemoglobin 14.8 GM/DL (14.0-18.0); Immature Granulocytes % 1.1 %; Immature Granulocytes Absolute 0.11 #; Lymphocytes # 1.1 10*3/uL (1.4-4.0); Lymphocytes % 10.9 % (21.2-54.2); Mean Corpuscular HGB Conc 32.7 GM/DL (32-36); Mean Corpuscular Volume 90.2 FL (87-102); Mean Platelet Volume 11.5 FL (9.6-12.0); Monocytes % 3.7 % (1.7-12.7); Neutrophils % 84.1 % (38.7-73.9); Platelet Count 177 T/CUMM (130-400); Red Blood Count 5.01 MC/CUMM (3.8-5.5); Red Cell Distribution Width 13.7 % (9.3-17.3); White Blood Count 10.2 T/CUMM (4-12)
[2020-10-29 04:06] LABS: Calcium 8.3 MG/DL (8.5-10.1); Osmolality,Calculated 292.4 MOS/KG (273-304); Potassium 3.9 MMOL/L (3.5-5.1)
[2020-10-29] MEDS: FAMOTIDINE 20 MG/2 ML VIAL IV SCH ×2 (04:20→18:03)
[2020-10-29] MEDS: POTASSIUM CHLORIDE 20 MEQ/15 ML UDCUP PER TUBE PRN (09:01)
[2020-10-29] MEDS: allopurinoL 100 MG TABLET PO SCH ×2 (09:01→21:24)
[2020-10-29] MEDS: FINASTERIDE 5 MG TABLET PO SCH (09:01)
[2020-10-29] MEDS: amLODIPine 10 MG TABLET PO SCH (09:01)
[2020-10-29] MEDS: cefTRIAXone 1,000 MG in SYRINGE 1 EACH IV SCH (09:01)
[2020-10-29] MEDS: TAMSULOSIN 0.4 MG CAPSULE PO SCH (09:01)
[2020-10-29] MEDS: INSULIN GLARGINE 100 UNIT/ML SUBCUT SCH ×2 (09:48→10:21)
[2020-10-29] MEDS: DOCUSATE SODIUM 100 MG/10 ML UDCUP PO SCH ×2 (10:20→21:24)
[2020-10-29] MEDS: niCARdipine INJ 25 MG in SODIUM CHLORIDE 0.9% 240 ML IV SCH ×2 (13:16→22:43)
[2020-10-29] MEDS: ASPIRIN 325 MG TABLET PER TUBE SCH (18:03)
[2020-10-29] MEDS: ENOXAPARIN 40 MG/0.4 ML SYRINGE SUBCUT SCH (18:03)
[2020-10-29] MEDS: ROSUVASTATIN 20 MG TABLET PER TUBE SCH (21:24)
[2020-10-30 04:26] LABS: Basophils % 0.1 % (0.0-0.8); Eosinophils % 0.1 % (0.00-10.9); Hematocrit 43.8 VOL% (42.0-52.0); Hemoglobin 13.9 GM/DL (14.0-18.0); Immature Granulocytes % 1.2 %; Immature Granulocytes Absolute 0.12 #; Lymphocytes # 2.3 10*3/uL (1.4-4.0); Lymphocytes % 23.8 % (21.2-54.2); Mean Corpuscular HGB Conc 31.7 GM/DL (32-36); Mean Corpuscular Volume 93.8 FL (87-102); Mean Platelet Volume 11.1 FL (9.6-12.0); Monocytes % 8.2 % (1.7-12.7); Neutrophils % 66.6 % (38.7-73.9); Platelet Count 173 T/CUMM (130-400); Red Blood Count 4.67 MC/CUMM (3.8-5.5); Red Cell Distribution Width 13.9 % (9.3-17.3); White Blood Count 9.8 T/CUMM (4-12)
[2020-10-30 04:28] LABS: ABG Base Excess 1.9 MMOL/L (-2.5-2.5); ABG HCO3 24.6 MMOL/L (20-26); ABG Oxygen Saturation 97.3 % (95-100); ABG PH 7.491 (7.35-7.45); ABG PO2 94.5 MM HG (80-95); ABG TCO2 25.7 MMOL/L (23-27); Allen Test Positive; Pt O2 Delivery Device Ventilator
[2020-10-30 04:46] LABS: Potassium 3.5 MMOL/L (3.5-5.1)
[2020-10-30 04:52] LABS: Risk Ratio 3.92; VLDL CHOLESTEROL 43.2 MG/DL
[2020-10-30] MEDS: FAMOTIDINE 20 MG/2 ML VIAL IV SCH ×2 (06:08→16:22)
[2020-10-30] MEDS: INSULIN LISPRO 100 UNIT/ML SUBCUT SCH ×3 (06:09→18:23)
[2020-10-30] MEDS: POTASSIUM CHLORIDE 20 MEQ/15 ML UDCUP PER TUBE PRN ×2 (06:10→09:52)
[2020-10-30] MEDS ORDERED: INSULIN GLARGINE 100 UNIT/ML SUBCUT SCH (09:00)
[2020-10-30] MEDS: DOCUSATE SODIUM 100 MG/10 ML UDCUP PO SCH ×2 (09:30→21:04)
[2020-10-30] MEDS: INSULIN GLARGINE 100 UNIT/ML SUBCUT SCH (09:30)
[2020-10-30] MEDS: FINASTERIDE 5 MG TABLET PO SCH (09:30)
[2020-10-30] MEDS: cefTRIAXone 1,000 MG in SYRINGE 1 EACH IV SCH (09:30)
[2020-10-30] MEDS: TAMSULOSIN 0.4 MG CAPSULE PO SCH (09:30)
[2020-10-30] MEDS: allopurinoL 100 MG TABLET PO SCH ×2 (09:30→21:04)
[2020-10-30] MEDS: ASPIRIN 325 MG TABLET PER TUBE SCH (09:30)
[2020-10-30] MEDS: amLODIPine 10 MG TABLET PO SCH (09:30)
[2020-10-30] MEDS: cloNIDine 0.3 MG/24 HR PATCH TRANSDERM SCH (12:05)
[2020-10-30] MEDS: niCARdipine INJ 25 MG in SODIUM CHLORIDE 0.9% 240 ML IV SCH (12:57)
[2020-10-30] MEDS: hydrALAZINE 20 MG/1 ML VIAL IV PRN (13:00)
[2020-10-30] MEDS: ENOXAPARIN 40 MG/0.4 ML SYRINGE SUBCUT SCH (16:22)
[2020-10-30] MEDS: ROSUVASTATIN 20 MG TABLET PER TUBE SCH (21:04)
[2020-10-31] MEDS: INSULIN LISPRO 100 UNIT/ML SUBCUT SCH ×5 (00:48→23:29)
[2020-10-31 03:53] LABS: Allen Test Positive; Pt O2 Delivery Device Ventilator
[2020-10-31 03:58] LABS: ABG Base Excess 0.5 MMOL/L (-2.5-2.5); ABG Oxygen Saturation 97.7 % (95-100); ABG PCO2 35.4 MM HG (35-48); ABG PH 7.449 (7.35-7.45); ABG PO2 101.3 MM HG (80-95); ABG TCO2 25.1 MMOL/L (23-27)
[2020-10-31 04:34] LABS: Basophils # 0.1 10*3/uL (0.0-0.2); Basophils % 0.7 % (0.0-0.8); Eosinophils # 0.1 10*3/uL (0.0-0.87); Eosinophils % 0.7 % (0.00-10.9); Hematocrit 49.5 VOL% (42.0-52.0); Hemoglobin 15.2 GM/DL (14.0-18.0); Immature Granulocytes % 2.1 %; Immature Granulocytes Absolute 0.14 #; Lymphocytes % 29.9 % (21.2-54.2); Mean Corpuscular HGB Conc 30.7 GM/DL (32-36); Mean Platelet Volume 11.2 FL (9.6-12.0); Monocytes % 10.6 % (1.7-12.7); NRBC # 0.04 10*3/uL; Platelet Count 147 T/CUMM (130-400); Red Cell Distribution Width 14.3 % (9.3-17.3); White Blood Count 6.8 T/CUMM (4-12)
[2020-10-31 04:56] LABS: Calcium 8.2 MG/DL (8.5-10.1); Osmolality,Calculated 291.1 MOS/KG (273-304)
[2020-10-31] MEDS: FAMOTIDINE 20 MG/2 ML VIAL IV SCH ×2 (06:33→16:45)
[2020-10-31] MEDS: TAMSULOSIN 0.4 MG CAPSULE PO SCH (09:40)
[2020-10-31] MEDS: allopurinoL 100 MG TABLET PO SCH ×2 (09:40→20:23)
[2020-10-31] MEDS: DOCUSATE SODIUM 100 MG/10 ML UDCUP PO SCH ×2 (09:40→20:23)
[2020-10-31] MEDS: amLODIPine 10 MG TABLET PO SCH (09:40)
[2020-10-31] MEDS: FINASTERIDE 5 MG TABLET PO SCH (09:40)
[2020-10-31] MEDS: INSULIN GLARGINE 100 UNIT/ML SUBCUT SCH (09:40)
[2020-10-31] MEDS: ASPIRIN 325 MG TABLET PER TUBE SCH (09:40)
[2020-10-31] MEDS: niCARdipine INJ 25 MG in SODIUM CHLORIDE 0.9% 240 ML IV SCH (12:30)
[2020-10-31] MEDS: ENOXAPARIN 40 MG/0.4 ML SYRINGE SUBCUT SCH (16:45)
[2020-10-31] MEDS: hydrALAZINE 20 MG/1 ML VIAL IV PRN (18:05)
[2020-10-31] MEDS: ROSUVASTATIN 20 MG TABLET PER TUBE SCH (20:23)
[2020-11-01] MEDS: hydrALAZINE 20 MG/1 ML VIAL IV PRN ×2 (00:08→13:35)
[2020-11-01 04:22] LABS: Basophils % 0.3 % (0.0-0.8); Eosinophils % 0.4 % (0.00-10.9); Hematocrit 46.8 VOL% (42.0-52.0); Hemoglobin 14.9 GM/DL (14.0-18.0); Immature Granulocytes % 1.1 %; Immature Granulocytes Absolute 0.08 #; Lymphocytes # 1.3 10*3/uL (1.4-4.0); Lymphocytes % 18.4 % (21.2-54.2); Mean Corpuscular HGB Conc 31.8 GM/DL (32-36); Mean Corpuscular Volume 93.6 FL (87-102); Mean Platelet Volume 10.9 FL (9.6-12.0); Monocytes % 9.8 % (1.7-12.7); Platelet Count 158 T/CUMM (130-400); Red Cell Distribution Width 14.2 % (9.3-17.3); White Blood Count 7.2 T/CUMM (4-12)
[2020-11-01 04:39] LABS: Calcium 8.7 MG/DL (8.5-10.1); Osmolality,Calculated 281.5 MOS/KG (273-304); Potassium 3.9 MMOL/L (3.5-5.1)
[2020-11-01] MEDS: FAMOTIDINE 20 MG/2 ML VIAL IV SCH ×2 (05:30→17:45)
[2020-11-01] MEDS: INSULIN LISPRO 100 UNIT/ML SUBCUT SCH ×3 (05:53→17:45)
[2020-11-01] MEDS: amLODIPine 10 MG TABLET PO SCH (08:40)
[2020-11-01] MEDS: ASPIRIN 325 MG TABLET PER TUBE SCH (08:40)
[2020-11-01] MEDS: INSULIN GLARGINE 100 UNIT/ML SUBCUT SCH (08:40)
[2020-11-01] MEDS: TAMSULOSIN 0.4 MG CAPSULE PO SCH (08:40)
[2020-11-01] MEDS: allopurinoL 100 MG TABLET PO SCH ×2 (08:40→20:01)
[2020-11-01] MEDS: DOCUSATE SODIUM 100 MG/10 ML UDCUP PO SCH ×2 (08:40→20:02)
[2020-11-01] MEDS: FINASTERIDE 5 MG TABLET PO SCH (08:40)
[2020-11-01] MEDS: ENOXAPARIN 40 MG/0.4 ML SYRINGE SUBCUT SCH (17:45)
[2020-11-01] MEDS: ROSUVASTATIN 20 MG TABLET PER TUBE SCH (20:01)
[2020-11-02] MEDS: INSULIN LISPRO 100 UNIT/ML SUBCUT SCH ×5 (00:25→23:23)
[2020-11-02] MEDS: hydrALAZINE 20 MG/1 ML VIAL IV PRN (03:31)
[2020-11-02] MEDS: FAMOTIDINE 20 MG/2 ML VIAL IV SCH ×2 (05:34→17:07)
[2020-11-02 05:52] LABS: Basophils % 0.1 % (0.0-0.8); Eosinophils # 0.1 10*3/uL (0.0-0.87); Eosinophils % 0.8 % (0.00-10.9); Hematocrit 47.6 VOL% (42.0-52.0); Hemoglobin 14.9 GM/DL (14.0-18.0); Immature Granulocytes % 1.1 %; Immature Granulocytes Absolute 0.08 #; Lymphocytes # 1.4 10*3/uL (1.4-4.0); Lymphocytes % 19.2 % (21.2-54.2); Mean Corpuscular HGB Conc 31.3 GM/DL (32-36); Mean Corpuscular Volume 92.1 FL (87-102); Mean Platelet Volume 10.7 FL (9.6-12.0); Monocytes % 13.7 % (1.7-12.7); Neutrophils % 65.1 % (38.7-73.9); Platelet Count 190 T/CUMM (130-400); Red Blood Count 5.17 MC/CUMM (3.8-5.5); Red Cell Distribution Width 14.2 % (9.3-17.3); White Blood Count 7.2 T/CUMM (4-12)
[2020-11-02 06:14] LABS: Osmolality,Calculated 283.4 MOS/KG (273-304)
[2020-11-02] MEDS: INSULIN GLARGINE 100 UNIT/ML SUBCUT SCH (08:31)
[2020-11-02] MEDS: FINASTERIDE 5 MG TABLET PO SCH (08:32)
[2020-11-02] MEDS: amLODIPine 10 MG TABLET PO SCH (08:32)
[2020-11-02] MEDS: TAMSULOSIN 0.4 MG CAPSULE PO SCH (08:32)
[2020-11-02] MEDS: ASPIRIN 325 MG TABLET PER TUBE SCH (08:32)
[2020-11-02] MEDS: allopurinoL 100 MG TABLET PO SCH ×2 (08:32→21:22)
[2020-11-02] MEDS: DOCUSATE SODIUM 100 MG/10 ML UDCUP PO SCH ×2 (08:33→21:21)
[2020-11-02] MEDS ORDERED: DEXMEDETOMIDINE 200 MCG in SODIUM CHLORIDE 0.9% 48 ML IV PRN (09:02)
[2020-11-02] MEDS: ENOXAPARIN 40 MG/0.4 ML SYRINGE SUBCUT SCH (17:06)
[2020-11-02] MEDS: DEXMEDETOMIDINE 400 MCG in SODIUM CHLORIDE 0.9% 96 ML IV PRN (19:30)
[2020-11-02] MEDS: ROSUVASTATIN 20 MG TABLET PER TUBE SCH (21:22)
[2020-11-03 05:09] LABS: ABG Base Excess 2.3 MMOL/L (-2.5-2.5); ABG HCO3 26.4 MMOL/L (20-26); ABG Oxygen Saturation 99.1 % (95-100); ABG PCO2 39.4 MM HG (35-48); ABG PH 7.436 (7.35-7.45); ABG TCO2 22.5 MMOL/L (23-27); Allen Test Positive; Pt O2 Delivery Device Ventilator
[2020-11-03 05:39] LABS: Basophils % 0.5 % (0.0-0.8); Eosinophils # 0.1 10*3/uL (0.0-0.87); Eosinophils % 1.7 % (0.00-10.9); Hematocrit 45.1 VOL% (42.0-52.0); Hemoglobin 14.5 GM/DL (14.0-18.0); Immature Granulocytes % 0.6 %; Immature Granulocytes Absolute 0.04 #; Lymphocytes # 1.6 10*3/uL (1.4-4.0); Lymphocytes % 24.1 % (21.2-54.2); Mean Corpuscular HGB Conc 32.2 GM/DL (32-36); Mean Corpuscular Volume 93.8 FL (87-102); Mean Platelet Volume 11.2 FL (9.6-12.0); Monocytes % 18.7 % (1.7-12.7); Neutrophils % 54.4 % (38.7-73.9); Platelet Count 171 T/CUMM (130-400); Red Blood Count 4.81 MC/CUMM (3.8-5.5); Red Cell Distribution Width 14.3 % (9.3-17.3); White Blood Count 6.6 T/CUMM (4-12)
[2020-11-03] MEDS: FAMOTIDINE 20 MG/2 ML VIAL IV SCH ×2 (06:05→17:16)
[2020-11-03 06:10] LABS: Anisocytosis Slight; Band Neutrophils 4 % (0-10); Eosinophils 1 % (0-10); Lymphocytes 25 % (20-55); Macrocytosis Slight; Nucleated Red Blood Cells 1 (0-5); Platelet Estimate Normal; Segmented Neutrophils 50 % (50-85); Total Cells Counted 100
[2020-11-03 06:31] LABS: Albumin 1.9 G/DL (3.4-5.0); Bilirubin,Total 0.9 MG/DL (0.2-1.0); Calcium 9.1 MG/DL (8.5-10.1); Potassium 4.7 MMOL/L (3.5-5.1); Total Protein 6.9 G/DL (6.4-8.3)
[2020-11-03] MEDS: INSULIN LISPRO 100 UNIT/ML SUBCUT SCH ×3 (06:35→17:17)
[2020-11-03] MEDS: ASPIRIN 325 MG TABLET PER TUBE SCH (09:18)
[2020-11-03] MEDS: DOCUSATE SODIUM 100 MG/10 ML UDCUP PO SCH ×2 (09:18→20:45)
[2020-11-03] MEDS: amLODIPine 10 MG TABLET PO SCH (09:18)
[2020-11-03] MEDS: TAMSULOSIN 0.4 MG CAPSULE PO SCH (09:18)
[2020-11-03] MEDS: FINASTERIDE 5 MG TABLET PO SCH (09:19)
[2020-11-03] MEDS: allopurinoL 100 MG TABLET PO SCH ×2 (09:19→20:45)
[2020-11-03] MEDS: INSULIN GLARGINE 100 UNIT/ML SUBCUT SCH (09:50)
[2020-11-03] MEDS: ENOXAPARIN 40 MG/0.4 ML SYRINGE SUBCUT SCH (17:16)
[2020-11-03] MEDS: DEXMEDETOMIDINE 400 MCG in SODIUM CHLORIDE 0.9% 96 ML IV PRN (17:23)
[2020-11-03] MEDS: ROSUVASTATIN 20 MG TABLET PER TUBE SCH (20:45)
[2020-11-04] MEDS: INSULIN LISPRO 100 UNIT/ML SUBCUT SCH ×5 (00:50→23:54)
[2020-11-04 04:10] LABS: Basophils % 0.3 % (0.0-0.8); Eosinophils # 0.1 10*3/uL (0.0-0.87); Eosinophils % 1.1 % (0.00-10.9); Hematocrit 45.4 VOL% (42.0-52.0); Hemoglobin 14.1 GM/DL (14.0-18.0); Immature Granulocytes % 0.5 %; Immature Granulocytes Absolute 0.03 #; Lymphocytes # 1.6 10*3/uL (1.4-4.0); Lymphocytes % 26.5 % (21.2-54.2); Mean Corpuscular HGB Conc 31.1 GM/DL (32-36); Mean Corpuscular Volume 94.6 FL (87-102); Mean Platelet Volume 10.8 FL (9.6-12.0); Neutrophils % 58.6 % (38.7-73.9); Platelet Count 191 T/CUMM (130-400); Red Cell Distribution Width 13.8 % (9.3-17.3); White Blood Count 6.1 T/CUMM (4-12)
[2020-11-04] MEDS: DEXMEDETOMIDINE 400 MCG in SODIUM CHLORIDE 0.9% 96 ML IV PRN ×2 (04:17→13:41)
[2020-11-04 04:47] LABS: Calcium 8.9 MG/DL (8.5-10.1); Osmolality,Calculated 286.5 MOS/KG (273-304); Potassium 4.3 MMOL/L (3.5-5.1)
[2020-11-04 05:02] LABS: ABG Base Excess 1.9 MMOL/L (-2.5-2.5); ABG Oxygen Saturation 97.9 % (95-100); ABG PCO2 34.7 MM HG (35-48); ABG PH 7.476 (7.35-7.45); ABG PO2 101.2 MM HG (80-95); ABG TCO2 26.1 MMOL/L (23-27); Allen Test Positive; Pt O2 Delivery Device Ventilator
[2020-11-04] MEDS: FAMOTIDINE 20 MG/2 ML VIAL IV SCH ×2 (06:05→18:20)
[2020-11-04] MEDS: FINASTERIDE 5 MG TABLET PO SCH (08:26)
[2020-11-04] MEDS: TAMSULOSIN 0.4 MG CAPSULE PO SCH (08:26)
[2020-11-04] MEDS: allopurinoL 100 MG TABLET PO SCH ×2 (08:26→21:24)
[2020-11-04] MEDS: ASPIRIN 325 MG TABLET PER TUBE SCH (08:26)
[2020-11-04] MEDS: DOCUSATE SODIUM 100 MG/10 ML UDCUP PO SCH ×2 (08:26→21:26)
[2020-11-04] MEDS: INSULIN GLARGINE 100 UNIT/ML SUBCUT SCH (08:26)
[2020-11-04] MEDS: amLODIPine 10 MG TABLET PO SCH (08:26)
[2020-11-04] MEDS: ENOXAPARIN 40 MG/0.4 ML SYRINGE SUBCUT SCH (18:20)
[2020-11-04] MEDS ORDERED: LACTULOSE 20 GM/30 ML UDCUP PO ONE (21:03)
[2020-11-04] MEDS: ACETAMINOPHEN 325 MG/10.15 ML UDCUP PO PRN (21:25)
[2020-11-04] MEDS: ROSUVASTATIN 20 MG TABLET PER TUBE SCH (21:26)
[2020-11-05 04:40] LABS: ABG Base Excess 2.4 MMOL/L (-2.5-2.5); ABG HCO3 26.5 MMOL/L (20-26); ABG Oxygen Saturation 97.7 % (95-100); ABG PCO2 43.7 MM HG (35-48); ABG PH 7.408 (7.35-7.45); ABG TCO2 23.2 MMOL/L (23-27); Allen Test Positive; Pt O2 Delivery Device Ventilator
[2020-11-05] MEDS: FAMOTIDINE 20 MG/2 ML VIAL IV SCH ×2 (05:45→18:00)
[2020-11-05] MEDS: INSULIN LISPRO 100 UNIT/ML SUBCUT SCH ×3 (06:10→17:20)
[2020-11-05 06:29] LABS: Basophils % 0.4 % (0.0-0.8); Eosinophils # 0.1 10*3/uL (0.0-0.87); Eosinophils % 0.5 % (0.00-10.9); Hematocrit 48.8 VOL% (42.0-52.0); Hemoglobin 15.3 GM/DL (14.0-18.0); Immature Granulocytes % 0.4 %; Immature Granulocytes Absolute 0.04 #; Lymphocytes # 1.7 10*3/uL (1.4-4.0); Lymphocytes % 17.7 % (21.2-54.2); Mean Corpuscular HGB Conc 31.4 GM/DL (32-36); Mean Corpuscular Volume 94.8 FL (87-102); Monocytes % 12.9 % (1.7-12.7); Neutrophils % 68.1 % (38.7-73.9); Platelet Count 223 T/CUMM (130-400); Red Blood Count 5.15 MC/CUMM (3.8-5.5); Red Cell Distribution Width 13.7 % (9.3-17.3); White Blood Count 9.4 T/CUMM (4-12)
[2020-11-05 08:25] LABS: Bilirubin,Total 0.5 MG/DL (0.2-1.0); Calcium 9.6 MG/DL (8.5-10.1); Osmolality,Calculated 285.4 MOS/KG (273-304); Potassium 4.4 MMOL/L (3.5-5.1)
[2020-11-05 08:33] LABS: Albumin 2.2 G/DL (3.4-5.0)
[2020-11-05] MEDS: FINASTERIDE 5 MG TABLET PO SCH (09:45)
[2020-11-05] MEDS: TAMSULOSIN 0.4 MG CAPSULE PO SCH (09:45)
[2020-11-05] MEDS: DOCUSATE SODIUM 100 MG/10 ML UDCUP PO SCH ×2 (09:45→22:01)
[2020-11-05] MEDS: INSULIN GLARGINE 100 UNIT/ML SUBCUT SCH (09:45)
[2020-11-05] MEDS: amLODIPine 10 MG TABLET PO SCH (09:45)
[2020-11-05] MEDS: ASPIRIN 325 MG TABLET PER TUBE SCH (09:45)
[2020-11-05] MEDS: allopurinoL 100 MG TABLET PO SCH ×2 (09:45→22:01)
[2020-11-05] MEDS: ENOXAPARIN 40 MG/0.4 ML SYRINGE SUBCUT SCH (18:00)
[2020-11-05] MEDS: DEXMEDETOMIDINE 400 MCG in SODIUM CHLORIDE 0.9% 96 ML IV PRN (19:20)
[2020-11-05] MEDS: ROSUVASTATIN 20 MG TABLET PER TUBE SCH (22:01)
[2020-11-06] MEDS: INSULIN LISPRO 100 UNIT/ML SUBCUT SCH ×4 (00:45→17:25)
[2020-11-06 05:02] LABS: ABG Base Excess 2.8 MMOL/L (-2.5-2.5); ABG HCO3 26.8 MMOL/L (20-26); ABG Oxygen Saturation 97.5 % (95-100); ABG PCO2 36.8 MM HG (35-48); ABG PH 7.462 (7.35-7.45); ABG PO2 92.5 MM HG (80-95); ABG TCO2 21.8 MMOL/L (23-27); Allen Test Positive; Pt O2 Delivery Device Ventilator
[2020-11-06 05:04] LABS: Basophils % 0.3 % (0.0-0.8); Eosinophils % 0.2 % (0.00-10.9); Hematocrit 46.8 VOL% (42.0-52.0); Hemoglobin 15.4 GM/DL (14.0-18.0); Immature Granulocytes % 0.4 %; Immature Granulocytes Absolute 0.04 #; Lymphocytes # 1.2 10*3/uL (1.4-4.0); Lymphocytes % 13.3 % (21.2-54.2); Mean Corpuscular HGB Conc 32.9 GM/DL (32-36); Mean Corpuscular Volume 91.4 FL (87-102); Mean Platelet Volume 11.1 FL (9.6-12.0); Monocytes % 8.6 % (1.7-12.7); Neutrophils % 77.2 % (38.7-73.9); Platelet Count 234 T/CUMM (130-400); Red Blood Count 5.12 MC/CUMM (3.8-5.5); Red Cell Distribution Width 13.6 % (9.3-17.3); White Blood Count 8.9 T/CUMM (4-12)
[2020-11-06 05:05] LABS: Total Cells Counted 0
[2020-11-06 05:39] LABS: Calcium 9.7 MG/DL (8.5-10.1); Osmolality,Calculated 290.4 MOS/KG (273-304); Potassium 4.3 MMOL/L (3.5-5.1)
[2020-11-06] MEDS: FAMOTIDINE 20 MG/2 ML VIAL IV SCH ×2 (05:45→16:30)
[2020-11-06] MEDS: TAMSULOSIN 0.4 MG CAPSULE PO SCH (08:32)
[2020-11-06] MEDS: DOCUSATE SODIUM 100 MG/10 ML UDCUP PO SCH ×2 (08:32→20:59)
[2020-11-06] MEDS: amLODIPine 10 MG TABLET PO SCH (08:32)
[2020-11-06] MEDS: allopurinoL 100 MG TABLET PO SCH ×2 (08:32→20:59)
[2020-11-06] MEDS: FINASTERIDE 5 MG TABLET PO SCH (08:32)
[2020-11-06] MEDS: ASPIRIN 325 MG TABLET PER TUBE SCH (08:32)
[2020-11-06] MEDS: INSULIN GLARGINE 100 UNIT/ML SUBCUT SCH (08:33)
[2020-11-06] MEDS: METOCLOPRAMIDE 10 MG/2 ML VIAL IV SCH ×3 (08:33→20:56)
[2020-11-06] MEDS: cloNIDine 0.3 MG/24 HR PATCH TRANSDERM SCH (08:43)
[2020-11-06] MEDS: DEXTROSE 50% 25 GM/50 ML VIAL IV PRN ×2 (12:10→17:30)
[2020-11-06] MEDS: ENOXAPARIN 40 MG/0.4 ML SYRINGE SUBCUT SCH (16:30)
[2020-11-06] MEDS: ROSUVASTATIN 20 MG TABLET PER TUBE SCH (20:59)
[2020-11-07] MEDS: INSULIN LISPRO 100 UNIT/ML SUBCUT SCH ×4 (00:03→17:58)
[2020-11-07] MEDS: METOCLOPRAMIDE 10 MG/2 ML VIAL IV SCH ×4 (03:34→20:39)
[2020-11-07 04:18] LABS: ABG Base Excess 2.5 MMOL/L (-2.5-2.5); ABG HCO3 26.6 MMOL/L (20-26); ABG Oxygen Saturation 98.6 % (95-100); ABG PCO2 36.3 MM HG (35-48); ABG PH 7.462 (7.35-7.45); ABG TCO2 22.1 MMOL/L (23-27)
[2020-11-07 04:47] LABS: Basophils % 0.5 % (0.0-0.8); Eosinophils # 0.1 10*3/uL (0.0-0.87); Eosinophils % 1.7 % (0.00-10.9); Hematocrit 43.1 VOL% (42.0-52.0); Hemoglobin 13.9 GM/DL (14.0-18.0); Immature Granulocytes % 0.3 %; Immature Granulocytes Absolute 0.02 #; Lymphocytes # 1.6 10*3/uL (1.4-4.0); Lymphocytes % 24.4 % (21.2-54.2); Mean Corpuscular HGB Conc 32.3 GM/DL (32-36); Mean Corpuscular Volume 91.7 FL (87-102); Mean Platelet Volume 10.6 FL (9.6-12.0); Monocytes % 11.1 % (1.7-12.7); Platelet Count 228 T/CUMM (130-400); Red Cell Distribution Width 13.6 % (9.3-17.3); White Blood Count 6.5 T/CUMM (4-12)
[2020-11-07 05:10] LABS: Calcium 9.4 MG/DL (8.5-10.1); Osmolality,Calculated 292.1 MOS/KG (273-304); Potassium 3.6 MMOL/L (3.5-5.1)
[2020-11-07] MEDS: FAMOTIDINE 20 MG/2 ML VIAL IV SCH ×2 (05:15→18:00)
[2020-11-07] MEDS: DEXMEDETOMIDINE 400 MCG in SODIUM CHLORIDE 0.9% 96 ML IV PRN (06:55)
[2020-11-07] MEDS: allopurinoL 100 MG TABLET PO SCH ×2 (09:09→20:38)
[2020-11-07] MEDS: ASPIRIN 325 MG TABLET PER TUBE SCH (09:09)
[2020-11-07] MEDS: amLODIPine 10 MG TABLET PO SCH (09:09)
[2020-11-07] MEDS: TAMSULOSIN 0.4 MG CAPSULE PO SCH (09:09)
[2020-11-07] MEDS: INSULIN GLARGINE 100 UNIT/ML SUBCUT SCH (09:09)
[2020-11-07] MEDS: DOCUSATE SODIUM 100 MG/10 ML UDCUP PO SCH ×2 (09:09→20:38)
[2020-11-07] MEDS: FINASTERIDE 5 MG TABLET PO SCH (09:09)
[2020-11-07] MEDS: POTASSIUM CHLORIDE 20 MEQ/15 ML UDCUP PER TUBE PRN ×2 (09:09→15:07)
[2020-11-07] MEDS: MEROPENEM 500 MG in SODIUM CHLORIDE 0.9% 100 ML IV SCH ×3 (09:35→20:38)
[2020-11-07] MEDS: hydrALAZINE 20 MG/1 ML VIAL IV PRN ×2 (15:18→22:12)
[2020-11-07] MEDS: ENOXAPARIN 40 MG/0.4 ML SYRINGE SUBCUT SCH (18:00)
[2020-11-07] MEDS: ROSUVASTATIN 20 MG TABLET PER TUBE SCH (20:38)
[2020-11-08] MEDS: INSULIN LISPRO 100 UNIT/ML SUBCUT SCH ×4 (00:09→18:06)
[2020-11-08] MEDS: MEROPENEM 500 MG in SODIUM CHLORIDE 0.9% 100 ML IV SCH ×4 (03:30→21:30)
[2020-11-08 04:04] LABS: Basophils # 0.1 10*3/uL (0.0-0.2); Basophils % 0.7 % (0.0-0.8); Eosinophils # 0.1 10*3/uL (0.0-0.87); Eosinophils % 1.3 % (0.00-10.9); Hemoglobin 14.8 GM/DL (14.0-18.0); Immature Granulocytes % 0.4 %; Immature Granulocytes Absolute 0.03 #; Lymphocytes # 1.2 10*3/uL (1.4-4.0); Lymphocytes % 16.6 % (21.2-54.2); Mean Corpuscular HGB Conc 31.5 GM/DL (32-36); Mean Corpuscular Volume 93.6 FL (87-102); Mean Platelet Volume 10.8 FL (9.6-12.0); Monocytes % 9.8 % (1.7-12.7); Neutrophils % 71.2 % (38.7-73.9); Platelet Count 245 T/CUMM (130-400); Red Blood Count 5.02 MC/CUMM (3.8-5.5); Red Cell Distribution Width 13.7 % (9.3-17.3); White Blood Count 7.2 T/CUMM (4-12)
[2020-11-08] MEDS: METOCLOPRAMIDE 10 MG/2 ML VIAL IV SCH ×4 (04:07→21:30)
[2020-11-08 04:23] LABS: Calcium 9.4 MG/DL (8.5-10.1); Osmolality,Calculated 290.1 MOS/KG (273-304)
[2020-11-08] MEDS: FAMOTIDINE 20 MG/2 ML VIAL IV SCH ×2 (05:04→18:25)
[2020-11-08] MEDS: ALBUTEROL/IPRATROPIUM 3 ML NEB RESP TX SCH ×3 (07:57→19:35)
[2020-11-08] MEDS: ASPIRIN 325 MG TABLET PER TUBE SCH (08:22)
[2020-11-08] MEDS: TAMSULOSIN 0.4 MG CAPSULE PO SCH (08:22)
[2020-11-08] MEDS: DOCUSATE SODIUM 100 MG/10 ML UDCUP PO SCH ×2 (08:22→21:30)
[2020-11-08] MEDS: amLODIPine 10 MG TABLET PO SCH (08:22)
[2020-11-08] MEDS: INSULIN GLARGINE 100 UNIT/ML SUBCUT SCH (08:22)
[2020-11-08] MEDS: FINASTERIDE 5 MG TABLET PO SCH (08:23)
[2020-11-08] MEDS: allopurinoL 100 MG TABLET PO SCH ×2 (08:23→21:29)
[2020-11-08] MEDS: ENOXAPARIN 40 MG/0.4 ML SYRINGE SUBCUT SCH (18:25)
[2020-11-08] MEDS: ROSUVASTATIN 20 MG TABLET PER TUBE SCH (21:30)
[2020-11-08] MEDS: hydrALAZINE 20 MG/1 ML VIAL IV PRN (22:13)
[2020-11-09] MEDS: INSULIN LISPRO 100 UNIT/ML SUBCUT SCH ×4 (00:08→19:27)
[2020-11-09] MEDS: ACETAMINOPHEN 325 MG/10.15 ML UDCUP PO PRN ×2 (00:21→23:39)
[2020-11-09] MEDS: ALBUTEROL/IPRATROPIUM 3 ML NEB RESP TX SCH ×4 (01:10→19:27)
[2020-11-09] MEDS: METOCLOPRAMIDE 10 MG/2 ML VIAL IV SCH ×2 (03:20→08:54)
[2020-11-09] MEDS: MEROPENEM 500 MG in SODIUM CHLORIDE 0.9% 100 ML IV SCH ×2 (03:20→08:52)
[2020-11-09 04:24] LABS: Basophils # 0.1 10*3/uL (0.0-0.2); Basophils % 0.6 % (0.0-0.8); Eosinophils # 0.1 10*3/uL (0.0-0.87); Eosinophils % 0.6 % (0.00-10.9); Hematocrit 47.8 VOL% (42.0-52.0); Hemoglobin 14.9 GM/DL (14.0-18.0); Immature Granulocytes % 0.4 %; Immature Granulocytes Absolute 0.03 #; Lymphocytes # 0.9 10*3/uL (1.4-4.0); Lymphocytes % 11.4 % (21.2-54.2); Mean Corpuscular HGB Conc 31.2 GM/DL (32-36); Mean Corpuscular Volume 95.4 FL (87-102); Mean Platelet Volume 10.7 FL (9.6-12.0); Monocytes % 8.6 % (1.7-12.7); Neutrophils % 78.4 % (38.7-73.9); Platelet Count 265 T/CUMM (130-400); Red Blood Count 5.01 MC/CUMM (3.8-5.5); Red Cell Distribution Width 13.6 % (9.3-17.3); White Blood Count 8.3 T/CUMM (4-12)
[2020-11-09 04:43] LABS: Calcium 9.2 MG/DL (8.5-10.1); Potassium 4.2 MMOL/L (3.5-5.1)
[2020-11-09] MEDS: FAMOTIDINE 20 MG/2 ML VIAL IV SCH (04:50)
[2020-11-09] MEDS: ASPIRIN 325 MG TABLET PER TUBE SCH (08:50)
[2020-11-09] MEDS: TAMSULOSIN 0.4 MG CAPSULE PO SCH (08:51)
[2020-11-09] MEDS: allopurinoL 100 MG TABLET PO SCH ×2 (08:51→20:56)
[2020-11-09] MEDS: FINASTERIDE 5 MG TABLET PO SCH (08:51)
[2020-11-09] MEDS: amLODIPine 10 MG TABLET PO SCH (08:51)
[2020-11-09] MEDS: DOCUSATE SODIUM 100 MG/10 ML UDCUP PO SCH ×2 (08:51→20:56)
[2020-11-09] MEDS: INSULIN GLARGINE 100 UNIT/ML SUBCUT SCH (08:52)
[2020-11-09] MEDS ORDERED: LEVOFLOXACIN 750 MG TABLET PER TUBE SCH (10:30)
[2020-11-09] MEDS: METOCLOPRAMIDE 10 MG/10 ML UDCUP PER TUBE SCH ×3 (13:09→23:39)
[2020-11-09] MEDS: ENOXAPARIN 40 MG/0.4 ML SYRINGE SUBCUT SCH (19:27)
[2020-11-09] MEDS: hydrALAZINE 20 MG/1 ML VIAL IV PRN (20:30)
[2020-11-09] MEDS: FAMOTIDINE 8 MG/ML 50 ML/BOTTLE PER TUBE SCH (20:56)
[2020-11-09] MEDS: ROSUVASTATIN 20 MG TABLET PER TUBE SCH (20:56)
[2020-11-10] MEDS: ALBUTEROL/IPRATROPIUM 3 ML NEB RESP TX SCH ×4 (00:57→19:16)
[2020-11-10] MEDS: INSULIN LISPRO 100 UNIT/ML SUBCUT SCH ×4 (01:04→18:18)
[2020-11-10] MEDS ORDERED: ACETAMINOPHEN 650 MG SUPP RECTAL ONE (03:05)
[2020-11-10 05:20] LABS: Basophils % 0.3 % (0.0-0.8); Eosinophils % 0.3 % (0.00-10.9); Hematocrit 46.6 VOL% (42.0-52.0); Hemoglobin 14.4 GM/DL (14.0-18.0); Immature Granulocytes % 0.5 %; Immature Granulocytes Absolute 0.05 #; Lymphocytes # 1.2 10*3/uL (1.4-4.0); Lymphocytes % 12.5 % (21.2-54.2); Mean Corpuscular HGB Conc 30.9 GM/DL (32-36); Mean Corpuscular Volume 95.5 FL (87-102); Mean Platelet Volume 10.4 FL (9.6-12.0); Monocytes % 11.3 % (1.7-12.7); Neutrophils % 75.1 % (38.7-73.9); Platelet Count 275 T/CUMM (130-400); Red Blood Count 4.88 MC/CUMM (3.8-5.5); Red Cell Distribution Width 14.2 % (9.3-17.3); White Blood Count 9.2 T/CUMM (4-12)
[2020-11-10 05:50] LABS: Bilirubin,Total 0.8 MG/DL (0.2-1.0); Osmolality,Calculated 299.1 MOS/KG (273-304); Potassium 4.4 MMOL/L (3.5-5.1); Total Protein 7.7 G/DL (5.0-7.5)
[2020-11-10] MEDS: METOCLOPRAMIDE 10 MG/10 ML UDCUP PER TUBE SCH ×3 (06:26→18:17)
[2020-11-10] MEDS: INSULIN GLARGINE 100 UNIT/ML SUBCUT SCH (08:39)
[2020-11-10] MEDS: allopurinoL 100 MG TABLET PO SCH ×2 (08:40→20:08)
[2020-11-10] MEDS: DOCUSATE SODIUM 100 MG/10 ML UDCUP PO SCH ×2 (08:40→20:08)
[2020-11-10] MEDS: amLODIPine 2.5 MG TABLET PO SCH (08:40)
[2020-11-10] MEDS: FINASTERIDE 5 MG TABLET PO SCH (08:40)
[2020-11-10] MEDS: TAMSULOSIN 0.4 MG CAPSULE PO SCH (08:40)
[2020-11-10] MEDS: ASPIRIN 325 MG TABLET PER TUBE SCH (08:40)
[2020-11-10] MEDS: FAMOTIDINE 8 MG/ML 50 ML/BOTTLE PER TUBE SCH ×2 (08:41→20:08)
[2020-11-10] MEDS ORDERED: DEXTROSE 50% 25 GM/50 ML VIAL IV PRN (11:09)
[2020-11-10] MEDS: ENOXAPARIN 40 MG/0.4 ML SYRINGE SUBCUT SCH (18:23)
[2020-11-10] MEDS: SODIUM CHLORIDE 0.9% 1,000 ML IV SCH (18:23)
[2020-11-10] MEDS: ROSUVASTATIN 20 MG TABLET PER TUBE SCH (20:08)
[2020-11-11] MEDS: METOCLOPRAMIDE 10 MG/10 ML UDCUP PER TUBE SCH ×4 (00:05→17:55)
[2020-11-11] MEDS: INSULIN LISPRO 100 UNIT/ML SUBCUT SCH ×4 (00:05→18:36)
[2020-11-11] MEDS: ALBUTEROL/IPRATROPIUM 3 ML NEB RESP TX SCH ×5 (00:32→23:59)
[2020-11-11] MEDS: SODIUM CHLORIDE 0.9% 1,000 ML IV SCH ×3 (02:59→18:38)
[2020-11-11 05:34] LABS: Basophils # 0.1 10*3/uL (0.0-0.2); Basophils % 0.5 % (0.0-0.8); Eosinophils # 0.1 10*3/uL (0.0-0.87); Eosinophils % 0.5 % (0.00-10.9); Hematocrit 46.7 VOL% (42.0-52.0); Hemoglobin 14.4 GM/DL (14.0-18.0); Immature Granulocytes % 0.2 %; Immature Granulocytes Absolute 0.02 #; Lymphocytes # 1.6 10*3/uL (1.4-4.0); Lymphocytes % 17.9 % (21.2-54.2); Mean Corpuscular HGB Conc 30.8 GM/DL (32-36); Mean Corpuscular Volume 96.7 FL (87-102); Mean Platelet Volume 10.4 FL (9.6-12.0); Neutrophils % 71.9 % (38.7-73.9); Platelet Count 231 T/CUMM (130-400); Red Blood Count 4.83 MC/CUMM (3.8-5.5); Red Cell Distribution Width 14.6 % (9.3-17.3); White Blood Count 9.2 T/CUMM (4-12)
[2020-11-11 06:48] LABS: Calcium 9.3 MG/DL (8.5-10.1); Osmolality,Calculated 299.1 MOS/KG (273-304); Potassium 4.7 MMOL/L (3.5-5.1)
[2020-11-11] MEDS: INSULIN GLARGINE 100 UNIT/ML SUBCUT SCH (09:22)
[2020-11-11] MEDS: DOCUSATE SODIUM 100 MG/10 ML UDCUP PO SCH ×2 (09:23→20:08)
[2020-11-11] MEDS: ASPIRIN 325 MG TABLET PER TUBE SCH (09:23)
[2020-11-11] MEDS: TAMSULOSIN 0.4 MG CAPSULE PO SCH (09:23)
[2020-11-11] MEDS: allopurinoL 100 MG TABLET PO SCH ×2 (09:23→20:08)
[2020-11-11] MEDS: FINASTERIDE 5 MG TABLET PO SCH (09:23)
[2020-11-11] MEDS: amLODIPine 2.5 MG TABLET PO SCH (09:23)
[2020-11-11] MEDS: FAMOTIDINE 8 MG/ML 50 ML/BOTTLE PER TUBE SCH ×2 (09:24→20:09)
[2020-11-11] MEDS: ACETAMINOPHEN 325 MG/10.15 ML UDCUP PO PRN (17:55)
[2020-11-11] MEDS: ROSUVASTATIN 20 MG TABLET PER TUBE SCH (20:08)
[2020-11-12] MEDS: METOCLOPRAMIDE 10 MG/10 ML UDCUP PER TUBE SCH ×4 (00:11→18:13)
[2020-11-12] MEDS: INSULIN LISPRO 100 UNIT/ML SUBCUT SCH ×4 (00:56→18:12)
[2020-11-12] MEDS: SODIUM CHLORIDE 0.9% 1,000 ML IV SCH ×5 (02:40→21:43)
[2020-11-12 06:04] LABS: Basophils # 0.1 10*3/uL (0.0-0.2); Basophils % 0.8 % (0.0-0.8); Eosinophils # 0.1 10*3/uL (0.0-0.87); Eosinophils % 1.5 % (0.00-10.9); Hematocrit 44.4 VOL% (42.0-52.0); Hemoglobin 13.7 GM/DL (14.0-18.0); Immature Granulocytes % 0.3 %; Immature Granulocytes Absolute 0.02 #; Lymphocytes # 1.7 10*3/uL (1.4-4.0); Lymphocytes % 23.9 % (21.2-54.2); Mean Corpuscular HGB Conc 30.9 GM/DL (32-36); Mean Corpuscular Volume 95.3 FL (87-102); Mean Platelet Volume 10.5 FL (9.6-12.0); Monocytes % 9.4 % (1.7-12.7); Neutrophils % 64.1 % (38.7-73.9); Platelet Count 208 T/CUMM (130-400); Red Blood Count 4.66 MC/CUMM (3.8-5.5); Red Cell Distribution Width 14.5 % (9.3-17.3); White Blood Count 7.1 T/CUMM (4-12)
[2020-11-12 06:10] LABS: INR 1.1; PT Patient Result 12.2 SECS (9.8-11.9)
[2020-11-12 06:23] LABS: Calcium 9.1 MG/DL (8.5-10.1); Osmolality,Calculated 302.4 MOS/KG (273-304); Potassium 4.5 MMOL/L (3.5-5.1)
[2020-11-12 06:30] LABS: Alanine Aminotransferase 67 U/L (16-61); Albumin 1.8 G/DL (3.4-5.0); Alkaline Phosphatase 104 U/L (45-117); Aspartate Amino Transferase 145 U/L (0-37); Bilirubin,Direct < 0.100 MG/DL (0.0-0.20); Bilirubin,Indirect 0.3 MG/DL (0.0-1.0); Blood Urea Nitrogen 35 MG/DL (7-18); Calcium 9.2 MG/DL (8.5-10.1); Carbon Dioxide 23 MMOL/L (21-32); Estimated Glom Filtration Rate 51 ML/MIN; Glucose 149 MG/DL (74-106); Osmolality,Calculated 302.4 MOS/KG (273-304); Potassium 4.5 MMOL/L (3.5-5.1); Sodium 147 MMOL/L (136-145); Total Protein 7.2 G/DL (5.0-7.5)
[2020-11-12] MEDS ORDERED: ceFAZolin 1,000 MG in SYRINGE 1 EACH IV ONE (07:00)
[2020-11-12] MEDS: ALBUTEROL/IPRATROPIUM 3 ML NEB RESP TX SCH ×3 (07:25→19:13)
[2020-11-12] MEDS: DOCUSATE SODIUM 100 MG/10 ML UDCUP PO SCH ×2 (08:05→21:39)
[2020-11-12] MEDS: TAMSULOSIN 0.4 MG CAPSULE PO SCH (08:05)
[2020-11-12] MEDS: ASPIRIN 325 MG TABLET PER TUBE SCH (08:05)
[2020-11-12] MEDS: INSULIN GLARGINE 100 UNIT/ML SUBCUT SCH (08:05)
[2020-11-12] MEDS: FINASTERIDE 5 MG TABLET PO SCH (08:06)
[2020-11-12] MEDS: allopurinoL 100 MG TABLET PO SCH ×2 (08:06→21:39)
[2020-11-12] MEDS: amLODIPine 2.5 MG TABLET PO SCH (08:06)
[2020-11-12] MEDS: FAMOTIDINE 8 MG/ML 50 ML/BOTTLE PER TUBE SCH ×2 (08:06→21:39)
[2020-11-12] MEDS ORDERED: LACTATED RINGERS 1,000 ML IV SCH (09:00)
[2020-11-12] MEDS ORDERED: ETOMIDATE 20 MG/10 ML VIAL IV ONE (09:04)
[2020-11-12] MEDS ORDERED: LIDOCAINE 2% 5 ML VIAL ONE (09:16)
[2020-11-12] MEDS: ROSUVASTATIN 20 MG TABLET PER TUBE SCH (21:39)
[2020-11-13] MEDS: ALBUTEROL/IPRATROPIUM 3 ML NEB RESP TX SCH ×3 (00:17→13:20)
[2020-11-13] MEDS: METOCLOPRAMIDE 10 MG/10 ML UDCUP PER TUBE SCH ×3 (01:56→15:04)
[2020-11-13] MEDS: INSULIN LISPRO 100 UNIT/ML SUBCUT SCH ×3 (01:56→15:04)
[2020-11-13] MEDS: SODIUM CHLORIDE 0.9% 1,000 ML IV SCH ×2 (05:47→15:05)
[2020-11-13 06:01] LABS: Calcium 8.8 MG/DL (8.5-10.1); Osmolality,Calculated 304.6 MOS/KG (273-304); Potassium 4.4 MMOL/L (3.5-5.1)
[2020-11-13] MEDS: amLODIPine 2.5 MG TABLET PO SCH (10:04)
[2020-11-13] MEDS: allopurinoL 100 MG TABLET PO SCH (10:05)
[2020-11-13] MEDS: ASPIRIN 325 MG TABLET PER TUBE SCH (10:05)
[2020-11-13] MEDS: TAMSULOSIN 0.4 MG CAPSULE PO SCH (10:06)
[2020-11-13] MEDS: DOCUSATE SODIUM 100 MG/10 ML UDCUP PO SCH (10:06)
[2020-11-13] MEDS: FINASTERIDE 5 MG TABLET PO SCH (10:06)
[2020-11-13] MEDS: cloNIDine 0.3 MG/24 HR PATCH TRANSDERM SCH (10:07)
[2020-11-13] MEDS: FAMOTIDINE 8 MG/ML 50 ML/BOTTLE PER TUBE SCH (10:07)
[2020-11-13 11:29] VITALS: BP 143/80
[2020-11-13] MEDS: INSULIN GLARGINE 100 UNIT/ML SUBCUT SCH (15:04)
== END 2020-11-13 16:54 | disposition hospice, home (50) | DRG 64 ==
LOC: EDBD → EDUNIT# → N.ED 11:59 → N.ICU 14:54 → SUATTDRO 14:54 → N.ICU 15:30 → N.4E 11-09 13:53
PROVIDERS: ADMIT Internal Medicine; ATTEND Internal Medicine
PROC: EGDWPEG (ICD-10-PCS; 2020-11-12 11:35)